=== PATIENT | female | born 1940 | race Caucasian/White ===

== ENCOUNTER → 2016-11-14 | Outpatient (CLI) | payer MEDICARE, BC ==
--- NOTE | 2016-11-15 07:00 | NM ---
EXAMINATION TYPE: NM bone scan whole body DATE OF EXAM: 11/14/2016 4:23 PM COMPARISON: NONE HISTORY: 76 year-old female left hip pain. Previous history of breast cancer. Technique: Delayed whole-body scanning was performed following the injection of mCi Tc 99m MDP. Imag es acquired 25.7 hours post injection. FINDINGS: Scattered degenerative tracer activity at both shoulders, posterior elements of the mid thoracic spin e, lower lumbar spine, throughout the hands and fingers, bilateral knees, bilateral midfoot regions, and right great toe. There is also slight asymmetric increased tracer activity at the left hip. No peter spicious accumulation of tracer to suggest metastatic disease. Some mild increased tracer activity in the right maxilla suggest periodontal disease. IMPRESSION: Scattered degenerative tracer activity as above with asymmetrically greater degenerative tracer activ ity at the left hip. No scintigraphic evidence for osseous metastatic disease.
== END | disposition home or self-care (01) ==
LOC: RADNMMAIN 10:59
PROVIDERS: ATTEND Orthopaedic Surgery
DX: R94.8 Abnormal results of function studies of other organs and systems (principal); M16.12 Unilateral primary osteoarthritis, left hip; Z85.3 Personal history of malignant neoplasm of breast
CPT/HCPCS: 78306; A9503

== ENCOUNTER → 2016-11-19 | Outpatient (CLI) | payer MEDICARE, BC | END | disposition home or self-care (01) | LOC: LABWHC1 14:54 | PROVIDERS: ATTEND Orthopaedic Surgery | DX: M25.552 Pain in left hip (principal); Z85.3 Personal history of malignant neoplasm of breast | CPT/HCPCS: 36415; 84681 ==

== ENCOUNTER → 2017-09-24 | Outpatient (CLI) | payer MEDICARE, BC ==
--- NOTE | 2017-09-24 18:09 | XR ---
EXAMINATION TYPE: XR chest 2V DATE OF EXAM: 09/24/2017 COMPARISON: Prior chest x-ray 03/23/2016 HISTORY: Breast cancer TECHNIQUE: Frontal and lateral views of the chest are obtained. FINDINGS: There is no focal air space opacity, pleural effusion, or pneumothorax seen. The cardiac silhouette size is within normal limits. Postop change noted to the left breast. There are prominent lung volumes. The osseous structures are intact. IMPRESSION: No acute cardiopulmonary process.
== END | disposition home or self-care (01) ==
LOC: RADXRMAIN 14:27
PROVIDERS: ATTEND Internal Medicine Hematology & Oncology
DX: C50.312 Malignant neoplasm of lower-inner quadrant of left female breast (principal); M15.9 Polyosteoarthritis, unspecified; K21.0 Gastro-esophageal reflux disease with esophagitis; Z17.0 Estrogen receptor positive status [ER+]
CPT/HCPCS: 71046

== ENCOUNTER → 2018-04-02 | Outpatient (CLI) | payer MEDICARE, BC ==
--- NOTE | 2018-04-02 14:53 | MM ---
Reason for exam: additional evaluation requested from prior study. Last mammogram was performed 1 year ago. History: Patient is postmenopausal and has history of breast cancer at age 60. Benign cyst aspiration of the left breast, August 02, 2004. Benign excisional biopsy, February 09, 2002. Cyst aspiration of the left breast. Lumpectomy of the left breast. Chemotherapy. Radiation therapy of the left breast. Took estrogen for 35 years. Took antineoplastic for 5 years beginning at age 60. Physical Findings: Nurse did not find any significant physical abnormalities on exam. MG 3D Diag Mammo W/Cad STEFANIE Bilateral CC and MLO view(s) were taken. Prior study comparison: March 25, 2017, bilateral MG 3d diag mammo w/cad STEFANIE. March 23, 2016, bilateral MG 3d diag mammo w/cad STEFANIE. The breast tissue is heterogeneously dense. This may lower the sensitivity of mammography. Extensive post surgical deformity redemonstrated left breast. No significant new findings when compared with previous films. These results were verbally communicated with the patient and result sheet given to the patient on 04/02/18. ASSESSMENT: Benign, BI-RAD 2 RECOMMENDATION: Follow-up diagnostic mammogram of both breasts in 1 year.
== END ==
LOC: RADMAMWWP 13:51
PROVIDERS: ATTEND Internal Medicine Hematology & Oncology
DX: Z08 Encounter for follow-up examination after completed treatment for malignant neoplasm (principal); Z85.3 Personal history of malignant neoplasm of breast
CPT/HCPCS: 77066; G0279; 77062

== ENCOUNTER → 2019-04-06 | Outpatient (CLI) | payer MEDICARE, BC ==
--- NOTE | 2019-04-07 11:23 | MM ---
Reason for exam: additional evaluation requested from prior study. Last mammogram was performed 1 year ago. History: Patient is postmenopausal and has history of breast cancer at age 60. Benign cyst aspiration of the left breast, August 02, 2004. Benign excisional biopsy, February 09, 2002. Cyst aspiration of the left breast. Lumpectomy of the left breast. Chemotherapy. Radiation therapy of the left breast. Took estrogen for 35 years. Took antineoplastic for 5 years beginning at age 60. Physical Findings: Nurse did not find any significant physical abnormalities on exam. MG 3D Diag Mammo W/Cad STEFANIE Bilateral CC and MLO view(s) were taken. Prior study comparison: April 02, 2018, bilateral MG 3d diag mammo w/cad STEFANIE. March 25, 2017, bilateral MG 3d diag mammo w/cad STEFANIE. The breast tissue is heterogeneously dense. This may lower the sensitivity of mammography. Benign appearing bilateral calcifications, mostly vascular. No suspicious abnormality. Post therapy change on the left. No significant new findings when compared with previous films. These results were verbally communicated with the patient and result sheet given to the patient on 04/06/19. ASSESSMENT: Benign, BI-RAD 2 RECOMMENDATION: Follow-up diagnostic mammogram of both breasts in 1 year.
== END | disposition home or self-care (01) ==
LOC: RADMAMWWP 10:49
PROVIDERS: ATTEND Internal Medicine Hematology & Oncology
DX: Z08 Encounter for follow-up examination after completed treatment for malignant neoplasm (principal); Z85.3 Personal history of malignant neoplasm of breast
CPT/HCPCS: 77066; G0279; 77062

== ENCOUNTER → 2020-04-08 | Outpatient (CLI) | payer MEDICARE, BC ==
--- NOTE | 2020-04-11 10:52 | MM ---
Reason for exam: additional evaluation requested from prior study. Last mammogram was performed 1 year ago. History: Patient is postmenopausal and has history of breast cancer at age 60. Benign cyst aspiration of the left breast, August 02, 2004. Benign excisional biopsy, February 09, 2002. Cyst aspiration of the left breast. Lumpectomy of the left breast. Chemotherapy. Radiation therapy of the left breast. Took estrogen for 35 years. Took antineoplastic for 5 years beginning at age 60. Physical Findings: Nurse did not find any significant physical abnormalities on exam. MG 3D Diag Mammo W/Cad STEFANIE Bilateral CC and MLO view(s) were taken. Prior study comparison: April 06, 2019, bilateral MG 3d diag mammo w/cad STEFANIE. April 02, 2018, bilateral MG 3d diag mammo w/cad STEFANIE. The breast tissue is heterogeneously dense. This may lower the sensitivity of mammography. Finding #1: Architectural distortion in the lower inner quadrant, posterior position of the left breast consistent with known lumpectomy and treatment changes. Finding #2: There are typically benign vascular calcifications in both breasts. There is no discrete abnormality. These results were verbally communicated with the patient and result sheet given to the patient on 04/08/20. ASSESSMENT: Benign, BI-RAD 2 RECOMMENDATION: Follow-up diagnostic mammogram of both breasts in 1 year.
== END | disposition home or self-care (01) ==
LOC: RADMAMWWP 13:15
PROVIDERS: ATTEND Internal Medicine Hematology & Oncology
DX: Z08 Encounter for follow-up examination after completed treatment for malignant neoplasm (principal); Z85.3 Personal history of malignant neoplasm of breast
CPT/HCPCS: 77066; G0279; 77062

== ENCOUNTER → 2020-10-26 | Outpatient (CLI) | payer MEDICARE, BC ==
--- NOTE | 2020-10-26 11:33 | XR ---
EXAMINATION TYPE: XR chest 2V DATE OF EXAM: 10/26/2020 COMPARISON: 09/24/17 HISTORY: Shortness of breath TECHNIQUE: Frontal and lateral views of the chest are obtained. FINDINGS: Scattered senescent parenchymal changes noted. Hyperinflation compatible with COPD. No evidence for infiltrate. No evidence for atelectasis. Heart size is stable. Mediastinal structures are stable and grossly unremarkable. No evidence for hilar prominence. Degenerative changes dorsal spine. IMPRESSION: 1. No evidence for acute pulmonary disease.
== END | disposition home or self-care (01) ==
LOC: RADXRMAIN 11:00
PROVIDERS: ATTEND Internal Medicine
DX: R06.02 Shortness of breath (principal)
CPT/HCPCS: 71046

== ENCOUNTER → 2020-11-07 | Outpatient (CLI) | payer MEDICARE, BC ==
[2020-11-07 14:30] LABS: African American GFR (CKD) >90 (>60 ml/min/1.73 sqM); Blood Urea Nitrogen 13 mg/dL (7-17); Non-African American GFR(CKD) 87 (>60 ml/min/1.73 sqM)
--- NOTE | 2020-11-07 15:56 | CT ---
EXAMINATION TYPE: CT abdomen pelvis w con DATE OF EXAM: 11/07/2020 COMPARISON: None HISTORY: abdominal pain, hx of breast ca CT DLP: 881.3 mGycm CONTRAST: CT scan of the abdomen and pelvis is performed with Oral Contrast and with IV Contrast, patient injec dennise with 100 mL of Isovue 300. FINDINGS: LUNG BASES-: No visible nodule. No infiltrate. LIVER/GB: Multiple hepatic masses are identified measuring up to 3.2 cm with involvement of virtually all hepatic segments. The findings are compatible with metastatic disease. The gallbladder is surgic ally absent. PANCREAS: No inflammation. No distinct mass. SPLEEN: No splenic enlargement. No lesion seen. ADRENALS: 1.2 cm right adrenal nodule. 1.3 cm left adrenal nodule. Metastatic disease not excluded. KIDNEYS/BLADDER: No hydronephrosis. No nephrolithiasis. Renal cystic changes noted. Urinary bladder grossly unremarkable. BOWEL: Normal appendix. Normal bowel caliber. No inflammation. GENITAL ORGANS: No gross abnormality. LYMPH NODES: Periportal adenopathy measuring 1.1 cm. AORTA: No significant abnormality. OSSEOUS STRUCTURES: No significant abnormality is seen. OTHER: No significant additional abnormality is seen. IMPRESSION: 1. Findings compatible with metastatic disease to the liver. 2. Adrenal nodules may reflect adrenal metastases. 3. Mild periportal adenopathy.
== END | disposition home or self-care (01) ==
LOC: RADCTMAIN 13:34
PROVIDERS: ATTEND Internal Medicine
DX: E27.9 Disorder of adrenal gland, unspecified (principal); R59.9 Enlarged lymph nodes, unspecified; Z85.3 Personal history of malignant neoplasm of breast
CPT/HCPCS: 82565; 84520; 74177; 36415; Q9967

== ENCOUNTER → 2020-12-13 | Outpatient (CLI) | payer MEDICARE, BC ==
--- NOTE | 2020-12-13 15:02 | XR ---
EXAMINATION TYPE: XR ribs RT DATE OF EXAM: 12/13/2020 COMPARISON: Chest radiograph 10/26/2020 HISTORY: Bruising after fall TECHNIQUE: 4 views right RIBS FINDINGS: Degenerative changes are noted in the right acromioclavicular and glenohumeral joints. There are minimally displaced rib fractures of the posterior lateral aspects of the right eighth and ninth ribs. IMPRESSION: Minimally displaced rib fractures of the posterolateral aspects of the right eighth and ninth ribs. Degenerative changes of the right acromioclavicular and glenohumeral joints.
== END | disposition home or self-care (01) ==
LOC: RADXRMAIN 14:06
PROVIDERS: ATTEND Internal Medicine
DX: S22.41XA Multiple fractures of ribs, right side, initial encounter for closed fracture (principal); W19.XXXA Unspecified fall, initial encounter

== ENCOUNTER → 2021-01-03 | Day surgery (SDC) | payer MEDICARE, BC ==

== ENCOUNTER → 2021-04-14 | Outpatient (CLI) | payer MEDICARE, BC ==
--- NOTE | 2021-04-14 11:46 | MM ---
Reason for exam: additional evaluation requested from prior study. Last mammogram was performed 1 year ago. History: Patient is postmenopausal and has history of breast cancer at age 60. Benign cyst aspiration of the left breast, August 02, 2004. Benign excisional biopsy, February 09, 2002. Cyst aspiration of the left breast. Lumpectomy of the left breast. Chemotherapy. Radiation therapy of the left breast. Took estrogen for 35 years. Took antineoplastic for 5 years beginning at age 60. Physical Findings: Nurse did not find any significant physical abnormalities on exam. MG 3D Diag Mammo W/Cad STEFANIE Bilateral CC and MLO view(s) were taken. Prior study comparison: April 08, 2020, bilateral MG 3d diag mammo w/cad STEFANIE. April 06, 2019, bilateral MG 3d diag mammo w/cad STEFANIE. April 02, 2018, bilateral MG 3d diag mammo w/cad STEFANIE. The breast tissue is heterogeneously dense. This may lower the sensitivity of mammography. Finding #1: There is decreased in size and architectural distortion in the lower inner quadrant of the left breast consistent with known lumpectomy changes. Finding #2: There are typically benign vascular calcifications in both breasts. There is no discrete abnormality. These results were verbally communicated with the patient and result sheet given to the patient on 04/14/21. ASSESSMENT: Benign, BI-RAD 2 RECOMMENDATION: Routine screening mammogram of both breasts in 1 year.
== END | disposition home or self-care (01) ==
LOC: RADMAMWWP 10:55
PROVIDERS: ATTEND Internal Medicine Hematology & Oncology
DX: R92.1 Mammographic calcification found on diagnostic imaging of breast (principal); Z85.3 Personal history of malignant neoplasm of breast
CPT/HCPCS: 77066; G0279; 77062

== ENCOUNTER → 2021-05-23 | Outpatient (CLI) | payer MEDICARE, BC ==
[2021-05-23 11:24] LABS: African American GFR (CKD) >90 (>60 ml/min/1.73 sqM); Blood Urea Nitrogen 12 mg/dL (7-17); Non-African American GFR(CKD) 88 (>60 ml/min/1.73 sqM)
--- NOTE | 2021-05-23 12:58 | CT ---
EXAMINATION TYPE: CT abdomen pelvis w con DATE OF EXAM: 05/23/2021 HISTORY: Abnormal imaging, prior abnormal CT CT DLP: 997mGycm Automated Exposure Control for Dose Reduction was Utilized. CONTRAST: CT scan of the abdomen and pelvis is performed with IV Contrast, patient injected with 100 mL of Isov ue 300. COMPARISON: CT abdomen and pelvis November 07, 2020 FINDINGS: LUNG BASES: Mild bibasilar linear scarring and/or atelectasis. LIVER/GB: Cholecystectomy clips are redemonstrated. Persistent mild hepatomegaly with prominent right hepatic lobe. Visualized liver remains heterogeneously hypodense. Prior study showed approximately 1 0 smaller heterogeneous hypodense masses suspicious for metastatic disease. Current study shows rough ly 5-6 larger masses that are heterogeneously hypodense with more central irregular hypodensity. No s ignificant change on delayed phase imaging. For reference there is lesion in the left hepatic lobe me asures 8.0 cm long axis axial image 19 series 3. Main portal vein remains patent. Draining hepatic ve ins into IVC redemonstrated. PANCREAS: No significant abnormality is seen. SPLEEN: No significant abnormality is seen. ADRENALS: Slight nodular thickening to both adrenal glands is stable favoring benign lipid rich lesio n. KIDNEYS: Scattered simple-appearing thin-walled cysts throughout both kidneys largest laterally right kidney series 3 image 38 not significantly changed from prior study lower pole level. BOWEL: Surgical sutures in the sigmoid colon left pelvis redemonstrated. Oral contrast reaches the he patic flexure. No suspicious small or large bowel dilatation. UTERUS/ADNEXA: Uterus surgically absent. Scattered pelvic phleboliths. LYMPH NODES: No greater than 1cm abdominal or pelvic lymph nodes are appreciated. OSSEOUS STRUCTURES: No significant abnormality is seen. OTHER: Nonspecific 1.0 cm soft tissue nodule anterior to the liver is stable axial image 25. IMPRESSION: Enlarging liver lesions in patient with known history of breast cancer strongly favor met astatic disease. Suspect some central necrosis. Consider resampling.
== END | disposition home or self-care (01) ==
LOC: RADCTMAIN 10:07
PROVIDERS: ATTEND Internal Medicine Hematology & Oncology
DX: C50.312 Malignant neoplasm of lower-inner quadrant of left female breast (principal); R93.89 Abnormal findings on diagnostic imaging of other specified body structures
CPT/HCPCS: 82565; 84520; 74177; 36415; Q9967

== ENCOUNTER → 2021-09-30 | Outpatient (CLI) | payer MEDICARE, BC ==
--- NOTE | 2021-09-30 15:56 | MR ---
EXAMINATION TYPE: MR brain wo/w con DATE OF EXAM: 09/30/2021 COMPARISON: NONE HISTORY: Headaches, syncope. TECHNIQUE: Multiplanar, multisequence images of the brain and brainstem is performed without and with IV contras t, utilizing 6.5 mL intravenous Gadavist . FINDINGS: Diffusion weighted images demonstrate no evidence of a recent infarct or other diffusion ab normality. There is mild to moderate ventricular and sulcal prominence. There are focal and confluen t areas of T2 hyperintensity seen throughout the white matter greatest at periventricular levels. Les ions are nonspecific in appearance and distribution. Midline structures demonstrate normal morphology. The craniocervical junction appears within normal limits. Post contrast images demonstrate no abnormal enhancement or enhancing masses. The dural veno us sinuses appear patent. The visualized sinuses are clear and the globes are intact. IMPRESSION: [id number] diffuse cerebral atrophy and moderate nonspecific white matter changes c ould reflect product of altered vascular mechanics related to products of migraine headaches and/or p roduct of chronic small vessel ischemic change in patient of this age. No abnormal enhancement is see n.
== END | disposition home or self-care (01) ==
LOC: RADMRIMAIN 14:17
PROVIDERS: ATTEND Internal Medicine
DX: G31.89 Other specified degenerative diseases of nervous system (principal); R90.89 Other abnormal findings on diagnostic imaging of central nervous system
CPT/HCPCS: 70553; A9585

== ENCOUNTER 2021-10-27 13:53 | Emergency (ER) | payer MEDICARE, BC ==
[2021-10-27 13:59] VITALS: RESP 18; TEMP 98.8
--- NOTE | 2021-10-27 15:36 | CT ---
EXAMINATION TYPE: CT brain cspine wo con DATE OF EXAM: 10/27/2021 COMPARISON: Head CT dated 01/10/2010 HISTORY: pain after fall today CT DLP: 1301.1 mGycm Automated exposure control for dose reduction was used. TECHNIQUE: CT scan of the head and cervical spine are performed without contrast. FINDINGS: There is no acute intracranial hemorrhage, mass effect, or midline shift identified. The ventricles and basal cisterns and sulci over convexities are moderately enlarged consistent with mode rate generalized atrophy.. The globes are intact and the visualized sinuses are clear. Cervical spine is visualized in its entirety from C1 through upper thoracic levels and demonstrates s atisfactory alignment without evidence of acute fracture or dislocation. Prevertebral soft tissue ap pears within normal limits. The C1-C2 articulation is unremarkable. There is moderate degenerative disease at C5-6 and C6-7 levels and there is moderate bony neural foraminal encroachment at C5-6 on t he right. IMPRESSION: 1. There is no acute fracture or dislocation evident in the cervical spine. 2. No acute intracranial hemorrhage, mass effect, or midline shift is seen. Moderate generalized atro phy. 3. Moderate degenerative changes in the lower cervical spine as described above.
[2021-10-27] MEDS ORDERED: TOPICAL SKIN ADHESIVE 1 EACH AMP TOPICAL ONE (16:09)
--- NOTE | 2021-10-27 16:25 | ED ---
Fall HPI - General Chief Complaint: Fall Stated Complaint: fall Time Seen by Provider: 10/27/21 14:57 Source: patient, EMS Mode of arrival: EMS - History of Present Illness Initial Comments: Patient is an 81-year-old female presenting for evaluation after mechanical fall today. Patient states that she tripped on her shoelaces today, hitting her head on the door frame. Patient noticed blood immediately following the injury. They immediately called EMS. She lives with her at home. She denies any nausea, vomiting, loss of consciousness, history of blood thinners, dizziness, neck pain or stiffness, vision or hearing changes, chest pain, shortness of breath, cough, hemoptysis, fever, chills. - Related Data Home Medications Medication Instructions Recorded Confirmed Amitriptyline HCl [Elavil] 25 mg PO HS 12/26/20 10/27/21 Metoprolol Succinate (ER) [Toprol 50 mg PO DAILY 12/26/20 10/27/21 Xl] Docusate [Colace] 100 mg PO DAILY PRN 01/03/21 10/27/21 Meclizine [Antivert] 25 mg PO DAILY 10/27/21 10/27/21 Allergies Allergy/AdvReac Type Severity Reaction Status Date / Time No Known Allergies Allergy Verified 10/27/21 16:44 Review of Systems ROS Statement: Those systems with pertinent positive or pertinent negative responses have been documented in the HPI. ROS Other: All systems not noted in ROS Statement are negative. Past Medical History Past Medical History: Eye Disorder, Hypertension Additional Past Medical History / Comment(s): left breast with lymph node involvement- 2001, double vision, cataract, bladder infection History of Any Multi-Drug Resistant Organisms: MRSA Date of last positivie culture/infection: 10/06/21 MDRO Source:: MRSA URINE Past Surgical History: Hysterectomy Additional Past Surgical History / Comment(s): left breast with 16 lymph nodes removed. biopsy rt breast, colon resection not due to surgery Past Anesthesia/Blood Transfusion Reactions: No Reported Reaction Past Psychological History: No Psychological Hx Reported Smoking Status: Never smoker Past Alcohol Use History: Rare - Past Family History Mother Family Medical History: No Reported History General Exam Limitations: no limitations General appearance: alert, in no apparent distress Head exam: Present: other (3 cm superficial laceration to the occipital region of the head, otherwise WNL) Eye exam: Present: normal appearance, PERRL, EOMI. Absent: scleral icterus Neck exam: Present: normal inspection Respiratory exam: Present: normal lung sounds bilaterally. Absent: respiratory distress, wheezes, rales, rhonchi, stridor Cardiovascular Exam: Present: regular rate, normal rhythm, normal heart sounds. Absent: systolic murmur, diastolic murmur, rubs, gallop, clicks Neurological exam: Present: alert, oriented X3, CN II-XII intact Expanded Patient oriented to: Present: person, place, time Speech: Present: fluid speech Cranial nerves: EOM's Intact: Normal, Facial Sensation: Normal Eye Response: (4) open spontaneously Motor Response: (6) obeys commands Verbal Response: (5) oriented [place] Total: 15 Psychiatric exam: Present: normal affect, normal mood Skin exam: Present: warm, dry, intact, normal color. Absent: rash Course Vital Signs 10/27/21 10/27/21 10/27/21 13:55 16:23 17:05 Temperature 98.8 F 98.8 F Pulse Rate 92 90 89 Respiratory 18 18 18 Rate Blood Pressure 114/73 126/79 119/79 O2 Sat by Pulse 98 97 98 Oximetry Medical Decision Making - Medical Decision Making Patient is an 81-year-old female presenting for evaluation post fall. Patient states that she tripped on her shoelaces today, hitting her head on the door frame. She notes some blood present at the site of injury. She arrived via EMS. On exam there are no focal neurological deficits. There is a small approxim ately 3 cm superficial laceration of the scalp near the occipital region. There is dried blood surrounding the area. CT of the brain and cervical spine without contrast shows no acute fracture or dislocation, no acute intracranial hemorrhage, mass effect, or midline shift seen. I cleaned the wound with warm water, due to its superficial nature and was repaired with skin adhesive. I educated the patient on wound care. Educated on return parameters and answered all questions. Report back to ER with any worsening symptoms. Patient conveyed verbal understanding and agreed to the plan. - Radiology Data Radiology results: report reviewed CT brain and cervical spine without contrast: There is no acute fracture or dislocation evident in the cervical spine. No acute intracranial hemorrhage, mass effect, or midline shift seen. Moderate generalized atrophy. Moderate degenerative changes in the lower cervical spine. Disposition Clinical Impression: Laceration of scalp, Fall Disposition: HOME SELF-CARE Condition: Good Instructions (If sedation given, give patient instructions): Fall Prevention for Older Adults (ED), Head Injury (DC), Skin Adhesive Care (ED) Additional Instructions: Follow-up with primary care in 1-2 days. Report back to ER with any worsening symptoms, including but not limited to dizziness, loss of consciousness, seizure, vomiting, weakness. Is patient prescribed a controlled substance at d/c from ED?: No Referrals: Oleksandr Dalal MD [Primary Care Provider] - 1-2 days Time of Disposition: 16:45
[2021-10-27 18:37] VITALS: BP 119/79; PULSE 89
== END 2021-10-27 17:05 | disposition home or self-care (01) ==
LOC: EC 13:53
DX: S01.01XA Laceration without foreign body of scalp, initial encounter (principal); I10 Essential (primary) hypertension; Z90.710 Acquired absence of both cervix and uterus; W01.10XA Fall on same level from slipping, tripping and stumbling with subsequent striking against unspecified object, initial encounter
CPT/HCPCS: 12002; 70450; 72125; 99284

== ENCOUNTER 2021-10-28 13:41 | Inpatient (IN) | payer MEDICARE, BC ==
[2021-10-28 13:49] LABS: Glucose,Whole Blood 101 mg/dL (75-99)
--- NOTE | 2021-10-28 14:04 | ED ---
General Adult HPI - General Chief complaint: Altered Mental Status Stated complaint: AMS Time Seen by Provider: 10/28/21 13:48 Source: patient, RN notes reviewed Limitations: altered mental status - History of Present Illness Initial comments: Patient is a pleasant 81-year-old female presenting to the emergency department for frequent falls. Patient does come from assisted living facility. Patient states she has had 5-7 falls over the past couple of days. Patient was in the emergency department yesterday and did have topical adhesive placed to her posterior scalp. Patient does not feel confused. There was some concern for confusion from the facility. Patient denies any other significant injury. No neck or back pain. No chest pain or dyspnea. Patient denies headache or isolated area of weakness. - Related Data Home Medications Medication Instructions Recorded Confirmed Amitriptyline HCl [Elavil] 25 mg PO HS 12/26/20 10/27/21 Metoprolol Succinate (ER) [Toprol 50 mg PO DAILY 12/26/20 10/27/21 Xl] Docusate [Colace] 100 mg PO DAILY PRN 01/03/21 10/27/21 Meclizine [Antivert] 25 mg PO DAILY 10/27/21 10/27/21 Allergies Allergy/AdvReac Type Severity Reaction Status Date / Time No Known Allergies Allergy Verified 10/28/21 13:52 Review of Systems ROS Statement: Those systems with pertinent positive or pertinent negative responses have been documented in the HPI. ROS Other: All systems not noted in ROS Statement are negative. Constitutional: Denies: fever Eyes: Denies: eye pain ENT: Denies: ear pain Respiratory: Denies: cough Cardiovascular: Denies: chest pain Endocrine: Denies: fatigue Gastrointestinal: Denies: abdominal pain Genitourinary: Denies: dysuria Musculoskeletal: Denies: back pain Skin: Denies: rash Neurological: Reports: as per HPI. Denies: headache Past Medical History Past Medical History: Eye Disorder, Hypertension Additional Past Medical History / Comment(s): left breast with lymph node involvement- 2001, double vision, cataract, bladder infection History of Any Multi-Drug Resistant Organisms: MRSA Date of last positivie culture/infection: 10/06/21 MDRO Source:: MRSA URINE Past Surgical History: Hysterectomy Additional Past Surgical History / Comment(s): left breast with 16 lymph nodes removed. biopsy rt breast, colon resection not due to surgery Past Anesthesia/Blood Transfusion Reactions: No Reported Reaction Past Psychological History: No Psychological Hx Reported Smoking Status: Never smoker Past Alcohol Use History: Rare - Past Family History Mother Family Medical History: No Reported History General Exam Limitations: altered mental status General appearance: alert, in no apparent distress Head exam: Present: other (Posterior scalp wound with tissue adhesive) Eye exam: Present: normal appearance, PERRL, EOMI ENT exam: Present: normal oropharynx Neck exam: Present: normal inspection, full ROM. Absent: tenderness Respiratory exam: Present: normal lung sounds bilaterally Cardiovascular Exam: Present: regular rate, normal rhythm GI/Abdominal exam: Present: soft. Absent: tenderness Extremities exam: Present: normal inspection, full ROM. Absent: tenderness Neurological exam: Present: alert, oriented X3, CN II-XII intact. Absent: motor sensory deficit Expanded Neurological exam: Present: protecting the airway, other (Patient oriented 3 however unable to state the presidents last name) Patient oriented to: Present: person, place, time Speech: Present: fluid speech Cranial nerves: EOM's Intact: Normal Sensory exam: Upper Extremity Light Touch: Normal, Lower Extremity Light Touch: Normal Motor strength exam: RUE: 5, LUE: 5, RLE: 5, LLE: 5 Eye Response: (4) open spontaneously Motor Response: (6) obeys commands Verbal Response: (5) oriented Psychiatric exam: Present: normal affect, normal mood Skin exam: Present: normal color Course Vital Signs 10/28/21 10/28/21 13:48 13:54 Pulse Rate 82 Respiratory 16 Rate Blood Pressure 128/112 106/76 O2 Sat by Pulse 95 Oximetry EKG Findings - EKG Comments: EKG Findings:: Sinus rhythm rate 79. SD 1:30. QRS 137. QT 445. QTC 479. Normal axis. Intraventricular conduction delay. Nonspecific ST-T. Medical Decision Making - Medical Decision Making Patient reevaluated. Patient and family updated on results and plan. Case d iscussed with Dr. Page, who will admit covering Dr. Dalal. - Lab Data Result diagrams: 10/28/21 14:24 10/28/21 14:24 Lab Results 10/28/21 10/28/21 10/28/21 Range/Units 13:48 14:24 14:24 WBC 8.3 (3.8-10.6) k/uL RBC 4.01 (3.80-5.40) m/uL Hgb 9.3 L (11.4-16.0) gm/dL Hct 31.1 L (34.0-46.0) % MCV 77.4 L (80.0-100.0) fL MCH 23.3 L (25.0-35.0) pg MCHC 30.0 L (31.0-37.0) g/dL RDW 18.5 H (11.5-15.5) % Plt Count 329 (150-450) k/uL MPV 8.9 Neutrophils % 79 % Lymphocytes % 12 % Monocytes % 6 % Eosinophils % 0 % Basophils % 0 % Neutrophils # 6.6 (1.3-7.7) k/uL Lymphocytes # 1.0 (1.0-4.8) k/uL Monocytes # 0.5 (0-1.0) k/uL Eosinophils # 0.0 (0-0.7) k/uL Basophils # 0.0 (0-0.2) k/uL Hypochromasia Marked Anisocytosis Slight Microcytosis Slight PT 11.2 (9.0-12.0) sec INR 1.0 (<1.2) APTT 22.6 (22.0-30.0) sec Sodium (137-145) mmol/L Potassium (3.5-5.1) mmol/L Chloride (98-107) mmol/L Carbon Dioxide (22-30) mmol/L Anion Gap mmol/L BUN (7-17) mg/dL Creatinine (0.52-1.04) mg/dL Est GFR (CKD-EPI)AfAm (>60 ml/min/1.73 sqM) Est GFR (CKD-EPI)NonAf (>60 ml/min/1.73 sqM) Glucose (74-99) mg/dL POC Glucose (mg/dL) 101 H (75-99) mg/dL POC Glu Surgery Specialist Myla Moyer Plasma Lactic Acid [place] (0.7-2.0) mmol/L Calcium (8.4-10.2) mg/dL Phosphorus (2.5-4.5) mg/dL Magnesium (1.6-2.3) mg/dL Total Bilirubin (0.2-1.3) mg/dL AST (14-36) U/L ALT (4-34) U/L Alkaline Phosphatase (38-126) U/L Creatine Kinase (30-135) U/L Troponin I (0.000-0.034) ng/mL Total Protein (6.3-8.2) g/dL Albumin (3.5-5.0) g/dL TSH (0.465-4.680) mIU/L Urine Color Urine Appearance (Clear) Urine pH (5.0-8.0) Ur Specific [place] (1.001-1.035) Urine Protein (Negative) Urine Glucose (UA) (Negative) Urine Ketones (Negative) Urine Blood (Negative) Urine Nitrite (Negative) Urine Bilirubin (Negative) Urine Urobilinogen (<2.0) mg/dL Ur Leukocyte Esterase (Negative) Urine RBC (0-5) /hpf Urine WBC (0-5) /hpf Urine WBC Clumps (None) /hpf Ur Squamous Epith Cells (0-4) /hpf Urine Bacteria (None) /hpf Hyaline Casts (0-2) /lpf Urine Mucus (None) /hpf 10/28/21 10/28/21 10/28/21 Range/Units 14:24 14:24 14:24 WBC (3.8-10.6) k/uL RBC (3.80-5.40) m/uL Hgb (11.4-16.0) gm/dL Hct (34.0-46.0) % MCV (80.0-100.0) fL MCH (25.0-35.0) pg MCHC (31.0-37.0) g/dL RDW (11.5-15.5) % Plt Count (150-450) k/uL MPV Neutrophils % % Lymphocytes % % Monocytes % % Eosinophils % % Basophils % % Neutrophils # (1.3-7.7) k/uL Lymphocytes # (1.0-4.8) k/uL Monocytes # (0-1.0) k/uL Eosinophils # (0-0.7) k/uL Basophils # (0-0.2) k/uL Hypochromasia Anisocytosis Microcytosis PT (9.0-12.0) sec INR (<1.2) APTT (22.0-30.0) sec Sodium 136 L (137-145) mmol/L Potassium 4.5 (3.5-5.1) mmol/L Chloride 106 (98-107) mmol/L Carbon Dioxide 23 (22-30) mmol/L Anion Gap 7 mmol/L BUN 18 H (7-17) mg/dL Creatinine 0.53 (0.52-1.04) mg/dL Est GFR (CKD-EPI)AfAm >90 (>60 ml/min/1.73 sqM) Est GFR (CKD-EPI)NonAf 89 (>60 ml/min/1.73 sqM) Glucose 96 (74-99) mg/dL POC Glucose (mg/dL) (75-99) mg/dL POC Glu Surgery Specialist ID Plasma Lactic Acid [place] 2.6 H* (0.7-2.0) mmol/L Calcium 9.0 (8.4-10.2) mg/dL Phosphorus 3.0 (2.5-4.5) mg/dL Magnesium 2.0 (1.6-2.3) mg/dL Total Bilirubin 1.3 (0.2-1.3) mg/dL AST 105 H (14-36) U/L ALT 36 H (4-34) U/L Alkaline Phosphatase 451 H (38-126) U/L Creatine Kinase 575 H (30-135) U/L Troponin I (0.000-0.034) ng/mL Total Protein 7.1 (6.3-8.2) g/dL Albumin 3.3 L (3.5-5.0) g/dL TSH 6.940 H (0.465-4.680) mIU/L Urine Color Yellow Urine Appearance Cloudy H (Clear) Urine pH 6.0 (5.0-8.0) Ur Specific [place] 1.024 (1.001-1.035) Urine Protein 2+ H (Negative) Urine Glucose (UA) Negative (Negative) Urine Ketones Trace H (Negative) Urine Blood Moderate H (Negative) Urine Nitrite Positive H (Negative) Urine Bilirubin Negative (Negative) Urine Urobilinogen 2.0 (<2.0) mg/dL Ur Leukocyte Esterase Large H (Negative) Urine RBC 167 H (0-5) /hpf Urine WBC >182 H (0-5) /hpf Urine WBC Clumps Many H (None) /hpf Ur Squamous Epith Cells <1 (0-4) /hpf Urine Bacteria Few H (None) /hpf Hyaline Casts 10 H (0-2) /lpf Urine Mucus Many H (None) /hpf 10/28/21 Range/Units 14:24 WBC (3.8-10.6) k/uL RBC (3.80-5.40) m/uL Hgb (11.4-16.0) gm/dL Hct (34.0-46.0) % MCV (80.0-100.0) fL MCH (25.0-35.0) pg MCHC (31.0-37.0) g/dL RDW (11.5-15.5) % Plt Count (150-450) k/uL MPV Neutrophils % % Lymphocytes % % Monocytes % % Eosinophils % % Basophils % % Neutrophils # (1.3-7.7) k/uL Lymphocytes # (1.0-4.8) k/uL Monocytes # (0-1.0) k/uL Eosinophils # (0-0.7) k/uL Basophils # (0-0.2) k/uL Hypochromasia Anisocytosis Microcytosis PT (9.0-12.0) sec INR (<1.2) APTT (22.0-30.0) sec Sodium (137-145) mmol/L Potassium (3.5-5.1) mmol/L Chloride (98-107) mmol/L Carbon Dioxide (22-30) mmol/L Anion Gap mmol/L BUN (7-17) mg/dL Creatinine (0.52-1.04) mg/dL Est GFR (CKD-EPI)AfAm (>60 ml/min/1.73 sqM) Est GFR (CKD-EPI)NonAf (>60 ml/min/1.73 sqM) Glucose (74-99) mg/dL POC Glucose (mg/dL) (75-99) mg/dL POC Glu Surgery Specialist ID Plasma Lactic Acid [place] (0.7-2.0) mmol/L Calcium (8.4-10.2) mg/dL Phosphorus (2.5-4.5) mg/dL Magnesium (1.6-2.3) mg/dL Total Bilirubin (0.2-1.3) mg/dL AST (14-36) U/L ALT (4-34) U/L Alkaline Phosphatase (38-126) U/L Creatine Kinase (30-135) U/L Troponin I <0.012 (0.000-0.034) ng/mL Total Protein (6.3-8.2) g/dL Albumin (3.5-5.0) g/dL TSH (0.465-4.680) mIU/L Urine Color Urine Appearance (Clear) Urine pH (5.0-8.0) Ur Specific [place] (1.001-1.035) Urine Protein (Negative) Urine Glucose (UA) (Negative) Urine Ketones (Negative) Urine Blood (Negative) Urine Nitrite (Negative) Urine Bilirubin (Negative) Urine Urobilinogen (<2.0) mg/dL Ur Leukocyte Esterase (Negative) Urine RBC (0-5) /hpf Urine WBC (0-5) /hpf Urine WBC Clumps (None) /hpf Ur Squamous Epith Cells (0-4) /hpf Urine Bacteria (None) /hpf Hyaline Casts (0-2) /lpf Urine Mucus (None) /hpf Disposition Clinical Impression: Fall, UTI (urinary tract infection) Disposition: ADMITTED IP TO THIS HOSP Is patient prescribed a controlled substance at d/c from ED?: No Referrals: Oleksandr Dalal MD [Primary Care Provider] - 1-2 days Time of Disposition: 15:48
--- NOTE | 2021-10-28 14:33 | XR ---
EXAMINATION TYPE: XR chest 2V DATE OF EXAM: 10/28/2021 COMPARISON: 10/26/21 HISTORY: sob TECHNIQUE: Frontal and lateral views of the chest are obtained. FINDINGS: There is no focal air space opacity, pleural effusion, or pneumothorax seen. The cardiac silhouette size is within normal limits. The osseous structures are intact. IMPRESSION: No acute cardiopulmonary process.
[2021-10-28 14:39] LABS: Anisocytosis Slight; Basophils % (A) 0 %; Eosinophils % (A) 0 %; HCT 31.1 % (34.0-46.0); HGB 9.3 gm/dL (11.4-16.0); Hypochromasia Marked; Lymphocytes % (A) 12 %; MCH 23.3 pg (25.0-35.0); MCV 77.4 fL (80.0-100.0); Mean Platelet Volume 8.9; Microcytosis Slight; Monocytes # (A) 0.5 k/uL (0-1.0); Monocytes % (A) 6 %; Neutrophils # (A) 6.6 k/uL (1.3-7.7); Neutrophils % (A) 79 %; Platelet Count 329 k/uL (150-450); RBC 4.01 m/uL (3.80-5.40); RDW 18.5 % (11.5-15.5); WBC 8.3 k/uL (3.8-10.6)
[2021-10-28 14:51] LABS: Partial Thromboplastin Time 22.6 sec (22.0-30.0); Prothrombin Time 11.2 sec (9.0-12.0)
--- NOTE | 2021-10-28 14:53 | CT ---
EXAMINATION TYPE: CT brain wo con DATE OF EXAM: 10/28/2021 HISTORY: Weakness. CT DLP: 1059.4 mGycm. Automated Exposure Control for Dose Reduction was Utilized. TECHNIQUE: CT scan of the head is performed without contrast. COMPARISON: None. FINDINGS: There is no acute intracranial hemorrhage or midline shift identified. There is diffuse v entricular and sulcal prominence consistent with diffuse age-related cerebral atrophy. . The globes are intact and the visualized sinuses are clear. IMPRESSION: No acute intracranial hemorrhage or midline shift. There is diffuse age-related cerebra l atrophy
[2021-10-28 15:09] LABS: ALT 36 U/L (4-34); AST 105 U/L (14-36); African American GFR (CKD) >90 (>60 ml/min/1.73 sqM); Albumin 3.3 g/dL (3.5-5.0); Alkaline Phosphatase 451 U/L (38-126); Anion Gap 7 mmol/L; Blood Urea Nitrogen 18 mg/dL (7-17); Carbon Dioxide 23 mmol/L (22-30); Chloride 106 mmol/L (98-107); Creatine Kinase 575 U/L (30-135); Glucose 96 mg/dL (74-99); Non-African American GFR(CKD) 89 (>60 ml/min/1.73 sqM); Potassium 4.5 mmol/L (3.5-5.1); Sodium 136 mmol/L (137-145); Total Bilirubin 1.3 mg/dL (0.2-1.3); Total Protein 7.1 g/dL (6.3-8.2)
[2021-10-28 15:39] LABS: Appearance,Urine Cloudy (Clear); Bacteria,Urine Few /hpf; Bilirubin,Urine Negative (Negative); Blood,Urine Moderate (Negative); Color,Urine Yellow; Glucose,Urine (UA) Negative (Negative); Hyaline Casts,Urine 10 /lpf (0-2); Ketones,Urine Trace (Negative); Leukocyte Esterase,Urine Large (Negative); Mucus,Urine Many /hpf; Nitrite,Urine Positive (Negative); Protein,Urine 2+ (Negative); RBC,Urine 167 /hpf (0-5); Specific Gravity,Urine 1.024 (1.001-1.035); Squamous Epithelial Cell,Urine <1 /hpf (0-4); WBC,Urine >182 /hpf (0-5)
[2021-10-28] MEDS ORDERED: NALOXONE 0.4 MG/ML 1 ML VIAL IV PRN (15:49)
[2021-10-28] MEDS: SODIUM CHLORIDE 0.9% 1,000 ML IV SCH (16:24)
[2021-10-28] MEDS: ACETAMINOPHEN TAB 325 MG TAB PO PRN (16:26)
[2021-10-28 18:16] LABS: T4, Free (Free Thyroxine) 1.36 ng/dL (0.78-2.19)
[2021-10-28] MEDS: AMITRIPTYLINE HCL 25 MG TAB PO SCH (19:48)
[2021-10-28] MEDS ORDERED: DOCUSATE 100 MG CAP PO PRN (21:00)
[2021-10-29 04:19] LABS: Anisocytosis Slight; Basophils # (A) 0.1 k/uL (0-0.2); Basophils % (A) 1 %; Eosinophils # (A) 0.1 k/uL (0-0.7); Eosinophils % (A) 1 %; HCT 28.8 % (34.0-46.0); HGB 8.5 gm/dL (11.4-16.0); Hypochromasia Marked; Lymphocytes # (A) 0.9 k/uL (1.0-4.8); Lymphocytes % (A) 12 %; MCH 23.2 pg (25.0-35.0); MCHC 29.6 g/dL (31.0-37.0); MCV 78.3 fL (80.0-100.0); Mean Platelet Volume 8.8; Microcytosis Slight; Monocytes # (A) 0.6 k/uL (0-1.0); Monocytes % (A) 8 %; Neutrophils # (A) 5.7 k/uL (1.3-7.7); Neutrophils % (A) 78 %; Platelet Count 267 k/uL (150-450); RBC 3.68 m/uL (3.80-5.40); RDW 18.6 % (11.5-15.5); WBC 7.4 k/uL (3.8-10.6)
[2021-10-29 04:34] LABS: Potassium 4.5 mmol/L (3.5-5.1)
[2021-10-29 04:35] LABS: ALT 31 U/L (4-34); AST 84 U/L (14-36); African American GFR (CKD) >90 (>60 ml/min/1.73 sqM); Albumin 2.8 g/dL (3.5-5.0); Albumin/Globulin Ratio 0.8; Alkaline Phosphatase 399 U/L (38-126); Anion Gap 4 mmol/L; Blood Urea Nitrogen 19 mg/dL (7-17); Calcium 8.7 mg/dL (8.4-10.2); Carbon Dioxide 25 mmol/L (22-30); Chloride 107 mmol/L (98-107); Globulin 3.4 g/dL; Glucose 85 mg/dL (74-99); Non-African American GFR(CKD) 89 (>60 ml/min/1.73 sqM); Sodium 136 mmol/L (137-145); Total Bilirubin 0.9 mg/dL (0.2-1.3); Total Protein 6.2 g/dL (6.3-8.2)
[2021-10-29] MEDS: ACETAMINOPHEN TAB 325 MG TAB PO PRN ×2 (06:36→16:43)
[2021-10-29] MEDS: SODIUM CHLORIDE 0.9% 1,000 ML IV SCH ×2 (08:13→21:22)
[2021-10-29] MEDS: METOPROLOL SUCCINATE (ER) 50 MG TAB.ER.24H PO SCH (08:13)
[2021-10-29] MEDS: MECLIZINE 25 MG TAB PO SCH (08:13)
--- NOTE | 2021-10-29 10:13 | P.HPIM ---
History of Present Illness H&P Date: 10/29/21 Chief Complaint: UTI and falls This is an 81-year-old female patient of Dr. Dalal presented to the ER with concerns of frequent falls patient is currently residing at assisted living facility and also concerns of confusion. Patient does appear to be a poor historian at this time. Patient does have a past medical history of essential hypertension, eye disorder, left breast cancer, memory impairment, and UTIs, anxiety and depression. Chest x-ray was performed showing no acute cardiopulmonary process. Head CT was performed showing no acute intracranial hemorrhage or midline shift there is diffuse age-related cerebral atrophy. UA positive for urinary tract infection. Initial lactic acid 2. 6 repeat lactic acid 2.0. Urine culture ordered. Patient started on Rocephin. At this time patient is resting comfortably in bed intermittent episodes of confusion. No o ther neurological symptoms at this time. Repeat labs have been ordered. PT OT and social work services consulted Review of Systems Please refer to HPI otherwise unremarkable Past Medical History Past Medical History: Eye Disorder, Hypertension Additional Past Medical History / Comment(s): left breast CA with lymph node involvement- 2001, double vision, cataract, bladder infection, memory impairment History of Any Multi-Drug Resistant Organisms: MRSA Date of last positivie culture/infection: 10/06/21 MDRO Source:: MRSA URINE Past Surgical History: Hysterectomy Additional Past Surgical History / Comment(s): left breast lumpectomy with 16 lymph nodes removed. biopsy rt breast, colon resection not due to surgery Past Anesthesia/Blood Transfusion Reactions: No Reported Reaction Past Psychological History: Anxiety, Depression Smoking Status: Former smoker Past Alcohol Use History: Rare - Past Family History Mother Family Medical History: No Reported History Medications and Allergies Home Medications Medication Instructions Recorded Confirmed Type Amitriptyline HCl [Elavil] 25 mg PO HS 12/26/20 10/28/21 History Metoprolol Succinate (ER) [Toprol 50 mg PO DAILY 12/26/20 10/28/21 History Xl] Docusate [Colace] 100 mg PO DAILY PRN 01/03/21 10/28/21 History Meclizine [Antivert] 25 mg PO DAILY 10/27/21 10/28/21 History Allergies Allergy/AdvReac Type Severity Reaction Status Date / Time No Known Allergies Allergy Verified 10/28/21 16:28 Physical Exam Vitals: Vital Signs Temp Pulse Pulse Resp BP BP Pulse Ox 10/29/21 08:00 98.7 F 99 16 129/72 95 10/29/21 01:30 97.9 F 94 18 144/74 95 10/28/21 19:20 98.0 F 84 16 123/74 96 10/28/21 19:02 16 10/28/21 16:40 84 18 116/70 95 10/28/21 13:54 106/76 10/28/21 13:48 98.0 F 82 16 128/112 95 Intake and Output 10/28/21 10/29/21 10/29/21 22:59 06:59 14:59 Other: Voiding Method Diaper Incontinent External Catheter # Voids 1 Weight 63.503 kg Head normocephalic Neck supple Lungs clear to auscultation bilaterally no wheezing or crackles Heart regular rate and rhythm S1-S2, no rub or gallop Abdomen is soft nontender nondistended positive bowel sounds no hepatosplenomegaly Extremities no edema Neuro alert and orientated to 3. Intermittent episodes of confusion Results CBC & Chem 7: 10/29/21 03:25 10/29/21 03:25 Labs: Abnormal Lab Results - Last 24 Hours (Table) 10/28/21 10/28/21 10/28/21 Range/Units 13:48 14:24 14:24 RBC (3.80-5.40) m/uL Hgb 9.3 L (11.4-16.0) gm/dL Hct 31.1 L (34.0-46.0) % MCV 77.4 L (80.0-100.0) fL MCH 23.3 L (25.0-35.0) pg MCHC 30.0 L (31.0-37.0) g/dL RDW 18.5 H (11.5-15.5) % Lymphocytes # (1.0-4.8) k/uL Sodium (137-145) mmol/L BUN (7-17) mg/dL POC Glucose (mg/dL) 101 H (75-99) mg/dL Plasma Lactic Acid [place] (0.7-2.0) mmol/L AST (14-36) U/L ALT (4-34) U/L Alkaline Phosphatase (38-126) U/L Creatine Kinase (30-135) U/L Total Protein (6.3-8.2) g/dL Albumin (3.5-5.0) g/dL TSH (0.465-4.680) mIU/L Urine Appearance Cloudy H (Clear) Urine Protein 2+ H (Negative) Urine Ketones Trace H (Negative) Urine Blood Moderate H (Negative) Urine Nitrite Positive H (Negative) Ur Leukocyte Esterase Large H (Negative) Urine RBC 167 H (0-5) /hpf Urine WBC >182 H (0-5) /hpf Urine WBC Clumps Many H (None) /hpf Urine Bacteria Few H (None) /hpf Hyaline Casts 10 H (0-2) /lpf Urine Mucus Many H (None) /hpf 10/28/21 10/28/21 10/29/21 Range/Units 14:24 14:24 03:25 RBC 3.68 L (3.80-5.40) m/uL Hgb 8.5 L (11.4-16.0) gm/dL Hct 28.8 L (34.0-46.0) % MCV 78.3 L (80.0-100.0) fL MCH 23.2 L (25.0-35.0) pg MCHC 29.6 L (31.0-37.0) g/dL RDW 18.6 H (11.5-15.5) % Lymphocytes # 0.9 L (1.0-4.8) k/uL Sodium 136 L (137-145) mmol/L BUN 18 H (7-17) mg/dL POC Glucose (mg/dL) (75-99) mg/dL Plasma Lactic Acid [place] 2.6 H* (0.7-2.0) mmol/L AST 105 H (14-36) U/L ALT 36 H (4-34) U/L Alkaline Phosphatase 451 H (38-126) U/L Creatine Kinase 575 H (30-135) U/L Total Protein (6.3-8.2) g/dL Albumin 3.3 L (3.5-5.0) g/dL TSH 6.940 H (0.465-4.680) mIU/L Urine Appearance (Clear) Urine Protein (Negative) Urine Ketones (Negative) Urine Blood (Negative) Urine Nitrite (Negative) Ur Leukocyte Esterase (Negative) Urine RBC (0-5) /hpf Urine WBC (0-5) /hpf Urine WBC Clumps (None) /hpf Urine Bacteria (None) /hpf Hyaline Casts (0-2) /lpf Urine Mucus (None) /hpf 10/29/21 Range/Units 03:25 RBC (3.80-5.40) m/uL Hgb (11.4-16.0) gm/dL Hct (34.0-46.0) % MCV (80.0-100.0) fL MCH (25.0-35.0) pg MCHC (31.0-37.0) g/dL RDW (11.5-15.5) % Lymphocytes # (1.0-4.8) k/uL Sodium 136 L (137-145) mmol/L BUN 19 H (7-17) mg/dL POC Glucose (mg/dL) (75-99) mg/dL Plasma Lactic Acid [place] (0.7-2.0) mmol/L AST 84 H (14-36) U/L ALT (4-34) U/L Alkaline Phosphatase 399 H (38-126) U/L Creatine Kinase (30-135) U/L Total Protein 6.2 L (6.3-8.2) g/dL Albumin 2.8 L (3.5-5.0) g/dL TSH (0.465-4.680) mIU/L Urine Appearance (Clear) Urine Protein (Negative) Urine Ketones (Negative) Urine Blood (Negative) Urine Nitrite (Negative) Ur Leukocyte Esterase (Negative) Urine RBC (0-5) /hpf Urine WBC (0-5) /hpf Urine WBC Clumps (None) /hpf Urine Bacteria (None) /hpf Hyaline Casts (0-2) /lpf Urine Mucus (None) /hpf Microbiology - Last 24 Hours (Table) 10/28/21 14:24 Urine Culture - Preliminary Urine,Catheterized Thrombosis Risk Factor Assmnt - Choose All That Apply Each Risk Factor Represents 3 Points: Age 75 years or older Thrombosis Risk Factor Assessment Total Risk Factor Score: 3 Thrombosis Risk Factor Assessment Level: Moderate Risk Assessment and Plan Assessment: 1. Frequent falls. Head CT was negative 2. Urinary tract infection. Urine culture ordered patient started on Rocephin 3. Confusion secondary to urinary tract infection 4. Anemia. Hemoglobin 8.5 will order stool for occult blood 5. History of essential hypertension 6. History of memory impairment 7. History of breast cancer 8. Anxiety and depression 9. Elevated liver enzymes. These do appear to be trending down repeat labs ordered for a.m. DVT prophylaxis Lovenox. GI prophylaxis Protonix Continue IV Rocephin Urine culture ordered Stool for occult blood ordered Continue normal saline at 75 'Repeat labs ordered Time with Patient: Greater than 30 (Greater than 60% of the total time spent in counseling and coordination of care)
--- NOTE | 2021-10-29 12:19 | US ---
EXAMINATION TYPE: US liver DATE OF EXAM: 10/29/2021 COMPARISON: Multiple CT's, most recent dated 05/23/2021 CLINICAL HISTORY: elevated liver numbers. EXAM MEASUREMENTS: Liver Length: 22.6 cm Gallbladder Wall: Surgically absent CBD: 0.4 cm Right Kidney: 13.7 x 4.7 x 5.1 cm Pancreas: Obscured by bowel gas Liver: multiple masses throughout both lobes, largest measures 10.2 x 9.0 x 10.7 cm. Gallbladder: Surgically absent CBD: wnl Right Kidney: lower pole cyst measures 3.4 x 3.2 x 3.7 cm. IMPRESSION: 1. Multiple suspicious lobular hypoechoic areas within the liver. The largest measures 10 cm which is slightly more prominent than CT of 05/23/2021.
[2021-10-29 16:30] LABS: % Iron Saturation 5.19 (12.00-45.00)
[2021-10-29] MEDS: AMITRIPTYLINE HCL 25 MG TAB PO SCH (20:22)
[2021-10-30] MEDS: LEVOTHYROXINE 25 MCG TAB PO SCH (04:32)
[2021-10-30] MEDS: ACETAMINOPHEN TAB 325 MG TAB PO PRN ×2 (04:32→15:08)
[2021-10-30] MEDS: MECLIZINE 25 MG TAB PO SCH (07:19)
[2021-10-30] MEDS: ENOXAPARIN 40 MG/0.4 ML SYRINGE SQ SCH (07:19)
[2021-10-30] MEDS: METOPROLOL SUCCINATE (ER) 50 MG TAB.ER.24H PO SCH (07:19)
[2021-10-30] MEDS: PANTOPRAZOLE 40 MG TABLET PO SCH (07:19)
[2021-10-30] MEDS: SODIUM CHLORIDE 0.9% 1,000 ML IV SCH ×2 (08:49→23:34)
[2021-10-30 10:46] LABS: Basophils # (A) 0.03 X 10*3/uL (0.00-0.10); Basophils % (A) 0.5 %; Eosinophils # (A) 0.02 X 10*3/uL (0.04-0.35); Eosinophils % (A) 0.3 %; HCT 27.6 % (37.2-46.3); HGB 7.9 g/dL (12.0-15.0); Lymphocytes # (A) 0.81 X 10*3/uL (0.90-5.00); Lymphocytes % (A) 13.4 %; MCH 22.4 pg (27.0-32.0); MCHC 28.6 g/dL (32.0-37.0); MCV 78.4 fL (80.0-97.0); Mean Platelet Volume 11.6 fL (9.5-12.2); Monocytes # (A) 0.63 X 10*3/uL (0.20-1.00); Monocytes % (A) 10.4 %; NRBC Per 100 WBC 0 /100 WBCS (0.0-0.0); Neutrophils % (A) 74.4 %; Platelet Count 264 X 10*3/uL (140-440); RBC 3.52 X 10*6/uL (4.10-5.20); RDW 20.6 % (11.5-14.5); WBC 6.05 X 10*3/uL (4.50-10.00)
[2021-10-30 11:15] LABS: African American GFR (CKD) 112.4 (60.0-200.0); Albumin 2.8 g/dL (3.8-4.9); Albumin/Globulin Ratio 0.97 (1.60-3.17); Anion Gap 11.4 mmol/L (10.00-18.00); BUN/Creat Ratio 20.25 Ratio (12.00-20.00); Blood Urea Nitrogen 8.1 mg/dL (9.0-27.0); Calcium 8.4 mg/dL (8.7-10.3); Carbon Dioxide 17.6 mmol/L (20.0-27.5); Globulin 2.9 g/dL (1.6-3.3); Potassium 4.2 mmol/L (3.5-5.5); Total Bilirubin 0.5 mg/dL (0.30-1.20); Total Protein 5.7 g/dL (6.2-8.2)
[2021-10-30] MEDS ORDERED: SODIUM FERRIC GLUCONAT-SUCROSE 125 MG in SODIUM CHLORIDE 0.9% 100 ML IVPB ONE (14:00)
[2021-10-30] MEDS: AMITRIPTYLINE HCL 25 MG TAB PO SCH (19:41)
--- NOTE | 2021-10-30 21:51 | US ---
EXAMINATION TYPE: US kidneys/renal and bladder DATE OF EXAM: 10/30/2021 COMPARISON: US liver 10/29/21 CLINICAL HISTORY: UTI. EXAM MEASUREMENTS: Right Kidney: 13.4 x 6.7 x 5.5 cm Left Kidney: 11.6 x 5.6 x 4.6 cm Incidental: masses seen throughout liver - also noted in US liver from 10/29/21 Right Kidney: Lower pole cystic area 3.6 x 3.4 x 3.1 cm Left Kidney: No hydronephrosis or masses seen Bladder: Anechoic; not distended and suboptimally evaluated. Bilateral Jets seen: No There is no evidence for hydronephrosis at this point in time. No nephrolithiasis is seen. No renal masses are identified. The urinary bladder is anechoic. IMPRESSION: 1. No evidence of hydronephrosis. 2. Multiple liver masses seen dating back to multiple prior CT abdomen pelvis is to at least 11/08/19 21. 3. Right renal cyst.
[2021-10-31] MEDS: ACETAMINOPHEN TAB 325 MG TAB PO PRN (04:13)
[2021-10-31] MEDS: LEVOTHYROXINE 25 MCG TAB PO SCH (04:17)
[2021-10-31] MEDS: PANTOPRAZOLE 40 MG TABLET PO SCH (07:03)
[2021-10-31] MEDS: METOPROLOL SUCCINATE (ER) 50 MG TAB.ER.24H PO SCH (07:03)
[2021-10-31] MEDS: SODIUM CHLORIDE 0.9% 1,000 ML IV SCH (07:03)
[2021-10-31] MEDS: MECLIZINE 25 MG TAB PO SCH (07:04)
[2021-10-31] MEDS: ENOXAPARIN 40 MG/0.4 ML SYRINGE SQ SCH (07:04)
--- NOTE | 2021-10-31 08:38 | P.GSCN ---
History of Present Illness Consult date: 10/31/21 Reason for Consult: Recurrent UTI Requesting physician: Kleber Page History of present illness: The patient is an 81-year-old white female with a history of recurrent UTIs. She also has a history of mixed urinary incontinence. She has been managed with a self treatment regimen using ciprofloxacin. In August, she was treated for a MRSA UTI with a 7 day course of Bactrim DS. She is currently admitted with UTI symptoms, and urine culture again shows MRSA. She reports dysuria but denies hematuria. Review of Systems - Constitutional Reports weakness - Genitourinary Genitourinary: Reports dysuria, Denies flank pain, Denies hematuria - Neurological Reports confusion Past Medical History Past Medical History: Eye Disorder, Hypertension Additional Past Medical History / Comment(s): left breast CA with lymph node involvement- 2001, double vision, cataract, bladder infection, memory impairment History of Any Multi-Drug Resistant Organisms: MRSA Year Discovered:: 10/06/21 MDRO Source:: MRSA URINE Past Surgical History: Hysterectomy Additional Past Surgical History / Comment(s): left breast lumpectomy with 16 lymph nodes removed. biopsy rt breast, colon resection not due to surgery Past Anesthesia/Blood Transfusion Reactions: No Reported Reaction Past Psychological History: Anxiety, Depression Smoking Status: Former smoker Past Alcohol Use History: Rare - Past Family History Mother Family Medical History: No Reported History Medications and Allergies Home Medications Medication Instructions Recorded Confirmed Type Amitriptyline HCl [Elavil] 25 mg PO HS 12/26/20 10/28/21 History Metoprolol Succinate (ER) [Toprol 50 mg PO DAILY 12/26/20 10/28/21 History Xl] Docusate [Colace] 100 mg PO DAILY PRN 01/03/21 10/28/21 History Meclizine [Antivert] 25 mg PO DAILY 10/27/21 10/28/21 History Allergies Allergy/AdvReac Type Severity Reaction Status Date / Time No Known Allergies Allergy Verified 10/28/21 16:28 Surgical - Exam Vital Signs Temp Pulse Resp BP Pulse Ox 98.0 F 82 16 128/112 95 10/28/21 13:48 10/28/21 13:48 10/28/21 13:48 10/28/21 13:48 10/28/21 13:48 - General well developed, well nourished, no distress - Respiratory normal respiratory effort - Abdomen Abdomen: soft, non tender, no guarding, no rigid, no rebound - Psychiatric oriented to time, oriented to person, oriented to place, speech is normal, memory intact Results - Labs 10/30/21 06:45 10/30/21 06:45 Abnormal Lab Results - Last 24 Hours (Table) 10/30/21 10/30/21 Range/Units 06:45 06:45 RBC 3.52 L (4.10-5.20) X 10*6/uL Hgb 7.9 L (12.0-15.0) g/dL Hct 27.6 L (37.2-46.3) % MCV 78.4 L (80.0-97.0) fL MCH 22.4 L (27.0-32.0) pg MCHC 28.6 L (32.0-37.0) g/dL RDW 20.6 H (11.5-14.5) % Immature Gran # 0.06 H (0.00-0.04) X 10*3/uL Lymphocytes # 0.81 L (0.90-5.00) X 10*3/uL Eosinophils # 0.02 L (0.04-0.35) X 10*3/uL Carbon Dioxide 17.6 L (20.0-27.5) mmol/L BUN 8.1 L (9.0-27.0) mg/dL Creatinine 0.4 L (0.6-1.5) mg/dL BUN/Creatinine Ratio 20.25 H (12.00-20.00) Ratio Calcium 8.4 L (8.7-10.3) mg/dL AST 77 H (13-35) U/L Alkaline Phosphatase 384 H (41-126) U/L Total Protein 5.7 L (6.2-8.2) g/dL Albumin 2.8 L (3.8-4.9) g/dL Albumin/Globulin Ratio 0.97 L (1.60-3.17) g/dL Microbiology - Last 24 Hours (Table) 10/28/21 14:24 Urine Culture - Final Urine,Catheterized Methicillin resist S. aureus Diabetes panel 10/30/21 Range/Units 06:45 Sodium 135 (135-145) mmol/L Potassium 4.2 (3.5-5.5) mmol/L Chloride 106 (96-109) mmol/L Carbon Dioxide 17.6 L (20.0-27.5) mmol/L BUN 8.1 L (9.0-27.0) mg/dL Creatinine 0.4 L (0.6-1.5) mg/dL Glucose 78 (70-110) mg/dL Calcium 8.4 L (8.7-10.3) mg/dL AST 77 H (13-35) U/L ALT 32 (8-44) U/L Alkaline Phosphatase 384 H (41-126) U/L Total Protein 5.7 L (6.2-8.2) g/dL Albumin 2.8 L (3.8-4.9) g/dL Calcium panel 10/30/21 Range/Units 06:45 Calcium 8.4 L (8.7-10.3) mg/dL Albumin 2.8 L (3.8-4.9) g/dL Pituitary panel 10/30/21 Range/Units 06:45 Sodium 135 (135-145) mmol/L Potassium 4.2 (3.5-5.5) mmol/L Chloride 106 (96-109) mmol/L Carbon Dioxide 17.6 L (20.0-27.5) mmol/L BUN 8.1 L (9.0-27.0) mg/dL Creatinine 0.4 L (0.6-1.5) mg/dL Glucose 78 (70-110) mg/dL Calcium 8.4 L (8.7-10.3) mg/dL Adrenal panel 10/30/21 Range/Units 06:45 Sodium 135 (135-145) mmol/L Potassium 4.2 (3.5-5.5) mmol/L Chloride 106 (96-109) mmol/L Carbon Dioxide 17.6 L (20.0-27.5) mmol/L BUN 8.1 L (9.0-27.0) mg/dL Creatinine 0.4 L (0.6-1.5) mg/dL Glucose 78 (70-110) mg/dL Calcium 8.4 L (8.7-10.3) mg/dL Total Bilirubin 0.50 (0.30-1.20) mg/dL AST 77 H (13-35) U/L ALT 32 (8-44) U/L Alkaline Phosphatase 384 H (41-126) U/L Total Protein 5.7 L (6.2-8.2) g/dL Albumin 2.8 L (3.8-4.9) g/dL - Imaging US - kidney/bladder: report reviewed Assessment and Plan (1) UTI (urinary tract infection) Current Visit: Yes Status: Acute Code(s): N39.0 - URINARY TRACT INFECTION, SITE NOT SPECIFIED SNOMED Code(s): 09869057 (2) Renal cyst Current Visit: Yes Status: Acute Code(s): N28.1 - CYST OF KIDNEY, ACQUIRED SNOMED Code(s): 820242254 Plan: The patient has a persistent MRSA UTI. She has failed outpatient oral antibiotic therapy. She is currently receiving ceftriaxone. The lack of hydronephrosis indicates that she will not require any urologic intervention. The postvoid residual will be checked to assess bladder emptying. Antibiotics should be changed to provide appropriate MRSA coverage. Time with Patient: Greater than 30
--- NOTE | 2021-10-31 08:43 | CDI ---
Documentation Clarification Form Date: 10/31/2021 08:32:10 AM From: Blanca Carrington CCS, CCDS Admit Date: 10/28/2021 03:49:00 PM Patient Name: Kristy Shaw Visit Number: [id number] Discharge Date: ATTENTION: The Clinical Documentation Specialists (CDI) and [facility] Coding Staff appreciate your assistance in clarifying documentation. Please respond to the clarification below the line at the bottom and electronically sign. The CDI & [facility] Coding staff will review the response and follow-up if needed. Please note: Queries are made part of the Legal Health Record. If you have any questions, please contact the author of this message via ITS. Dr. Kleber Page: The following is documented in the 10/29 History & Physical: Confusion secondary to Urinary Tract Infection. Additional clarification regarding the type of encephalopathy is requested. History/Risk Factors per the 10/29 H/P: Hypertension, Left Breast Cancer status post Lumpectomy with Lymph Nodes removed, Double Vision, Cataract, Bladder Infection, Memory Impairment, MRSA : Urine. Clinical Indicators: Presented to the ED on 10/28 from an Assisted Living Facility with Altered Mental Status and Frequent Falls. Was also in the ED the day prior after a fall, had a topical adhesive placed to her posterior scalp. Admit with Fall, UTI 10/28 VS: T 98.0, P 82, R 16, BP 128/112, PO 95 RA, BMI: 21.9 10/28 LAB: Hgb 9.3, Hct 31.1; Na 136, BUN 18, Glucose 101, Lactic Acid 2.6^^, AST 105, ALT 36, Alk Phos 451, Creatine Kinase 575, Albumin 3.3, TSH 6.940 10/28 UA: Cloudy, 2+ Protein, Trace Ketones, Moderate Blood, Positive Nitrite, Large Esterase, RBC 167, WBC >182, Hyaline Casts 10 10/28 CT Brain: No acute intracranial hemorrhage or midline shift. There is diffuse age-related cerebral atrophy. Treatment 10/28: Fall precautions, Neurological Assessments, O2 2Lnc, IV Rocephin 50 mls @ 100 mls/hr q12H, IV Na Cl 1,000 mls @ 75 mls/hr q13H Please clarify the following: [ x ] Metabolic Encephalopathy [ ] Septic Encephalopathy [ ] Other, please specify: [ ] Unable to determine (Template Last Revised: August 2020) MTDD
[2021-10-31 09:13] LABS: Basophils # (A) 0.03 X 10*3/uL (0.00-0.10); Basophils % (A) 0.5 %; Eosinophils # (A) 0.05 X 10*3/uL (0.04-0.35); Eosinophils % (A) 0.9 %; HCT 27.2 % (37.2-46.3); Immature Grans, Automated 1.6 %; Lymphocytes # (A) 0.86 X 10*3/uL (0.90-5.00); Lymphocytes % (A) 14.9 %; MCH 22.9 pg (27.0-32.0); MCHC 29.4 g/dL (32.0-37.0); MCV 77.9 fL (80.0-97.0); Mean Platelet Volume 11.6 fL (9.5-12.2); Monocytes # (A) 0.56 X 10*3/uL (0.20-1.00); Monocytes % (A) 9.7 %; NRBC Per 100 WBC 0 /100 WBCS (0.0-0.0); Neutrophils % (A) 72.4 %; Platelet Count 269 X 10*3/uL (140-440); RBC 3.49 X 10*6/uL (4.10-5.20); RDW 20.5 % (11.5-14.5); WBC 5.79 X 10*3/uL (4.50-10.00)
[2021-10-31 09:56] LABS: African American GFR (CKD) 104.5 (60.0-200.0); Albumin 2.7 g/dL (3.8-4.9); Albumin/Globulin Ratio 0.93 (1.60-3.17); Anion Gap 11.9 mmol/L (10.00-18.00); BUN/Creat Ratio 17.6 Ratio (12.00-20.00); Blood Urea Nitrogen 8.8 mg/dL (9.0-27.0); Calcium 8.2 mg/dL (8.7-10.3); Carbon Dioxide 16.1 mmol/L (20.0-27.5); Globulin 2.9 g/dL (1.6-3.3); Non-African American GFR(CKD) 90.1 (60.0-200.0); Potassium 4.1 mmol/L (3.5-5.5); Total Bilirubin 0.4 mg/dL (0.30-1.20); Total Protein 5.6 g/dL (6.2-8.2)
[2021-10-31] MEDS ORDERED: VANCOMYCIN IV PER PHARMACY 1 EACH MISC MISCELLANE PRN (15:41)
[2021-10-31] MEDS: SODIUM FERRIC GLUCONAT-SUCROSE 125 MG in SODIUM CHLORIDE 0.9% 100 ML IVPB SCH (16:47)
[2021-10-31] MEDS: VANCOMYCIN 1,250 MG in SODIUM CHLORIDE 0.9% 250 ML IVPB SCH (18:18)
--- NOTE | 2021-10-31 19:12 | P.PN ---
Subjective Progress Note Date: 10/30/21 This is an 81-year-old female patient of Dr. Dalal presented to the ER with concerns of frequent falls patient is currently residing at assisted living facility and also concerns of confusion. Patient does appear to be a poor historian at this time. Patient does have a past medical history of essential hypertension, eye disorder, left breast cancer, memory impairment, and UTIs, anxiety and depression. Chest x-ray was performed showing no acute cardiopulmonary process. Head CT was performed showing no acute intracranial hemorrhage or midline shift there is diffuse age-related cerebral atrophy. UA positive for urinary tract infection. Initial lactic acid 2. 6 repeat lactic acid 2.0. Urine culture ordered. Patient started on Rocephin. At this time patient is resting comfortably in bed intermittent episodes of confusion. No other neurological symptoms at this time. Repeat labs have been ordered. PT OT and social work services consulted On 10/30/2021 patient was seen and examined on the medical floor she is alert, confused, in no apparent distress there is no fever or chills no headache or dizziness no chest pain no shortness of breath no cough no nausea or vomiting no abdominal pain no diarrhea and no urinary symptoms. Patient has urinary tract infection and was started on IV Rocephin in the emergency room, she also has evidence of iron deficiency anemia and was started on IV iron, patient is medically stable and improving gradually Objective - Vital Signs Vital signs: Vital Signs Temp 97.7 F 10/30/21 07:43 Pulse 80 10/30/21 07:43 Resp 19 10/30/21 07:43 BP 107/57 10/30/21 07:43 Pulse Ox 95 10/30/21 07:43 Intake & Output 10/29/21 10/30/21 10/30/21 18:59 06:59 18:59 Intake Total 480 Output Total 200 Balance 280 Intake: Oral 480 Output: Urine 200 Other: Voiding Method Diaper Diaper Diaper Incontinent Incontinent Incontinent External Catheter External Catheter # Voids 1 1 # Bowel Movements 1 - Exam Head normocephalic Neck supple Lungs clear to auscultation bilaterally no wheezing or crackles Heart regular rate and rhythm S1-S2, no rub or gallop Abdomen is soft nontender nondistended positive bowel sounds no hepatosplenomegaly Extremities no edema Neuro alert and orientated to 3. Intermittent episodes of confusion - Labs CBC & Chem 7: 10/31/21 05:10 10/31/21 05:10 Labs: Abnormal Lab Results - Last 24 Hours (Table) 10/29/21 Range/Units 11:09 Iron 17 L (50-170) ug/dL % Saturation 5.19 L (12.00-45.00) Assessment and Plan Assessment: 1. Frequent falls. Head CT was negative 2. Urinary tract infection. Urine culture ordered patient started on Rocephin 3. Confusion secondary to urinary tract infection 4. Anemia. Hemoglobin 8.5 will order stool for occult blood 5. History of essential hypertension 6. History of memory impairment 7. History of breast cancer 8. Anxiety and depression 9. Elevated liver enzymes. These do appear to be trending down repeat labs ordered for a.m. DVT prophylaxis Lovenox. GI prophylaxis Protonix Continue IV Rocephin Urine culture ordered Stool for occult blood ordered Continue normal saline at 75 'Repeat labs ordered Plan: 1. Frequent falls. Head CT was negative 2. Urinary tract infection. Urine culture ordered patient started on Rocephin 3. Confusion secondary to urinary tract infection 4. Anemia. Hemoglobin 8.5 will order stool for occult blood 5. History of essential hypertension 6. History of memory impairment 7. History of breast cancer 8. Anxiety and depression 9. Elevated liver enzymes. These do appear to be trending down repeat labs ordered for a.m. DVT prophylaxis Lovenox. GI prophylaxis Protonix Continue IV Rocephin Urine culture ordered Stool for occult blood ordered Continue normal saline at 75 'Repeat labs ordered
--- NOTE | 2021-10-31 19:13 | P.PN ---
Subjective Progress Note Date: 10/31/21 This is an 81-year-old female patient of Dr. Dalal presented to the ER with concerns of frequent falls patient is currently residing at assisted living facility and also concerns of confusion. Patient does appear to be a poor historian at this time. Patient does have a past medical history of essential hypertension, eye disorder, left breast cancer, memory impairment, and UTIs, anxiety and depression. Chest x-ray was performed showing no acute cardiopulmonary process. Head CT was performed showing no acute intracranial hemorrhage or midline shift there is diffuse age-related cerebral atrophy. UA positive for urinary tract infection. Initial lactic acid 2. 6 repeat lactic acid 2.0. Urine culture ordered. Patient started on Rocephin. At this time patient is resting comfortably in bed intermittent episodes of confusion. No other neurological symptoms at this time. Repeat labs have been ordered. PT OT and social work services consulted On 10/30/2021 patient was seen and examined on the medical floor she is alert, confused, in no apparent distress there is no fever or chills no headache or dizziness no chest pain no shortness of breath no cough no nausea or vomiting no abdominal pain no diarrhea and no urinary symptoms. Patient has urinary tract infection and was started on IV Rocephin in the emergency room, she also has evidence of iron deficiency anemia and was started on IV iron, patient is medically stable and improving gradually Objective - Vital Signs Vital signs: Vital Signs Temp 97.7 F 10/31/21 14:00 Pulse 84 10/31/21 14:00 Resp 16 10/31/21 14:00 BP 131/76 10/31/21 14:00 Pulse Ox 99 10/31/21 14:00 Intake & Output 10/31/21 10/31/21 11/01/21 06:59 18:59 06:59 Output Total 230 Balance -230 Output: Post Void Residual 230 Other: Voiding Method Bedside Commode Bedside Commode Bedpan Bedpan Diaper Diaper Incontinent Incontinent # Voids 1 1 - Exam Head normocephalic Neck supple Lungs clear to auscultation bilaterally no wheezing or crackles Heart regular rate and rhythm S1-S2, no rub or gallop Abdomen is soft nontender nondistended positive bowel sounds no hepatosplenomegaly Extremities no edema Neuro alert and orientated to 3. Intermittent episodes of confusion - Labs CBC & Chem 7: 10/31/21 05:10 05/03/22 05:10 Labs: Abnormal Lab Results - Last 24 Hours (Table) 10/31/21 10/31/21 Range/Units 05:10 05:10 RBC 3.49 L (4.10-5.20) X 10*6/uL Hgb 8.0 L (12.0-15.0) g/dL Hct 27.2 L (37.2-46.3) % MCV 77.9 L (80.0-97.0) fL MCH 22.9 L (27.0-32.0) pg MCHC 29.4 L (32.0-37.0) g/dL RDW 20.5 H (11.5-14.5) % Immature Gran # 0.09 H (0.00-0.04) X 10*3/uL Lymphocytes # 0.86 L (0.90-5.00) X 10*3/uL Carbon Dioxide 16.1 L (20.0-27.5) mmol/L BUN 8.8 L (9.0-27.0) mg/dL Creatinine 0.5 L (0.6-1.5) mg/dL Calcium 8.2 L (8.7-10.3) mg/dL AST 77 H (13-35) U/L Alkaline Phosphatase 370 H (41-126) U/L Total Protein 5.6 L (6.2-8.2) g/dL Albumin 2.7 L (3.8-4.9) g/dL Albumin/Globulin Ratio 0.93 L (1.60-3.17) g/dL Microbiology - Last 24 Hours (Table) 10/28/21 14:24 Urine Culture - Final Urine,Catheterized Methicillin resist S. aureus Assessment and Plan Plan: 1. Frequent falls. Head CT was negative 2. Urinary tract infection. Urine culture ordered patient started on Rocephin, today culture is positive for MRSA in the urine IV antibiotic was switched to IV vancomycin consultation for Dr. Alarcon was initiated 3. Confusion secondary to urinary tract infection , improving 4. Anemia. Hemoglobin 8.5 will order stool for occult blood, patient has evidence of iron deficiency anemia she was started on IV Venofer 5. History of essential hypertension 6. History of memory impairment 7. History of breast cancer 8. Anxiety and depression 9. Elevated liver enzymes. These do appear to be trending down repeat labs ordered for a.m. DVT prophylaxis Lovenox. GI prophylaxis Protonix Continue IV Rocephin Urine culture ordered Stool for occult blood ordered Continue normal saline at 75 'Repeat labs ordered
[2021-10-31] MEDS: AMITRIPTYLINE HCL 25 MG TAB PO SCH (21:08)
--- NOTE | 2021-10-31 23:17 | P.CONS ---
History of Present Illness - Reason for Consult Consult date: 10/31/21 - History of Present Illness Patient is 81-year-old female presented to the hospital 3 days ago on 10/28/2021 patient presented with weakness and frequent falls in this patient who is a resident of assisted living facility apparently the patient have 5-7 falls over the last couple of days patient complaining of weakness no energy denies having any headache no URI symptoms therapy denies having any chest pain or shortness of breath or cough no abdominal pain or she complaining of some burning of urine has suprapubic discomfort patient on presentation to the hospital was afebrile and no fever recorded subsequently patient did have a normal white count patient did have elevated BUN and creatinine was normal AST was mildly elevated patient did have positive UA with large leukocyte Estrace more than 1-2 WBC with urine culture have been finalized with MRSA patient antibiotic was switched over to vancomycin today previously treated with Rocephin infectious disease was consulted for further management of antibiotic therapy patient did have a chest x-ray no acute cardiopulmonary process she did have a abdominal bladder ultrasound no evidence of hydronephrosis multiple liver masses right renal cyst Past Medical History Past Medical History: Eye Disorder, Hypertension Additional Past Medical History / Comment(s): left breast CA with lymph node involvement- 2001, double vision, cataract, bladder infection, memory impairment History of Any Multi-Drug Resistant Organisms: MRSA Year Discovered:: 10/28/21 MDRO Source:: URINE Past Surgical History: Hysterectomy Additional Past Surgical History / Comment(s): left breast lumpectomy with 16 lymph nodes removed. biopsy rt breast, colon resection not due to surgery Past Anesthesia/Blood Transfusion Reactions: No Reported Reaction Past Psychological History: Anxiety, Depression Smoking Status: Former smoker Past Alcohol Use History: Rare - Past Family History Mother Family Medical History: No Reported History Medications and Allergies Home Medications Medication Instructions Recorded Confirmed Type Amitriptyline HCl [Elavil] 25 mg PO HS 12/26/20 10/28/21 History Metoprolol Succinate (ER) [Toprol 50 mg PO DAILY 12/26/20 10/28/21 History Xl] Docusate [Colace] 100 mg PO DAILY PRN 01/03/21 10/28/21 History Meclizine [Antivert] 25 mg PO DAILY 10/27/21 10/28/21 History Allergies Allergy/AdvReac Type Severity Reaction Status Date / Time No Known Allergies Allergy Verified 10/28/21 16:28 Physical Exam Vitals: Vital Signs Temp Pulse Resp BP Pulse Ox 10/31/21 19:02 98.2 F 81 17 139/61 98 10/31/21 14:00 97.7 F 84 16 131/76 99 10/31/21 07:54 97.7 F 75 18 155/76 95 10/31/21 00:26 98.2 F 81 16 144/72 95 Intake and Output 10/31/21 10/31/21 11/01/21 14:59 22:59 06:59 Output Total 230 Balance -230 Output: Post Void Residual 230 Other: Voiding Method Bedside Commode Bedpan Diaper Incontinent # Voids 1 Results CBC & Chem 7: 10/31/21 05:10 10/31/21 05:10 Labs: Abnormal Lab Results - Last 24 Hours (Table) 10/31/21 10/31/21 Range/Units 05:10 05:10 RBC 3.49 L (4.10-5.20) X 10*6/uL Hgb 8.0 L (12.0-15.0) g/dL Hct 27.2 L (37.2-46.3) % MCV 77.9 L (80.0-97.0) fL MCH 22.9 L (27.0-32.0) pg MCHC 29.4 L (32.0-37.0) g/dL RDW 20.5 H (11.5-14.5) % Immature Gran # 0.09 H (0.00-0.04) X 10*3/uL Lymphocytes # 0.86 L (0.90-5.00) X 10*3/uL Carbon Dioxide 16.1 L (20.0-27.5) mmol/L BUN 8.8 L (9.0-27.0) mg/dL Creatinine 0.5 L (0.6-1.5) mg/dL Calcium 8.2 L (8.7-10.3) mg/dL AST 77 H (13-35) U/L Alkaline Phosphatase 370 H (41-126) U/L Total Protein 5.6 L (6.2-8.2) g/dL Albumin 2.7 L (3.8-4.9) g/dL Albumin/Globulin Ratio 0.93 L (1.60-3.17) g/dL Assessment and Plan (1) UTI (urinary tract infection) Current Visit: Yes Status: Acute Code(s): N39.0 - URINARY TRACT INFECTION, SITE NOT SPECIFIED SNOMED Code(s): 94854408 Plan: 1patient was in the hospital with weakness multiple falls which is likely multi factorial in this patient did have a positive UA concerning for possible symptomatic urinary tract infection with a urine finalized with MRSA likely the infected pathogen less likely colonization. 2we will repeat her urine cultures. 3vancomycin pharmacy to dose target trough of 15 while watching kidney function and vancomycin trough closely We will follow on clinical condition and cultures to further adjust medication if needed Thank you for this consultation will follow this patient along with you
[2021-11-01] MEDS: SODIUM CHLORIDE 0.9% 1,000 ML IV SCH ×2 (01:52→13:01)
[2021-11-01] MEDS: VANCOMYCIN 1,250 MG in SODIUM CHLORIDE 0.9% 250 ML IVPB SCH ×2 (04:56→16:39)
[2021-11-01 05:04] LABS: African American GFR (CKD) >90 (>60 ml/min/1.73 sqM); C Reactive Protein 6.7 mg/dL (<1.0); Non-African American GFR(CKD) 88 (>60 ml/min/1.73 sqM)
[2021-11-01] MEDS: LEVOTHYROXINE 25 MCG TAB PO SCH (06:16)
[2021-11-01 07:06] LABS: Appearance,Urine Clear (Clear); Bilirubin,Urine Negative (Negative); Blood,Urine Negative (Negative); Color,Urine Yellow; Glucose,Urine (UA) Negative (Negative); Ketones,Urine Negative (Negative); Leukocyte Esterase,Urine Negative (Negative); Nitrite,Urine Negative (Negative); PH, Urine 6.5 (5.0-8.0); Protein,Urine Negative (Negative); Specific Gravity,Urine 1.019 (1.001-1.035)
[2021-11-01] MEDS: MECLIZINE 25 MG TAB PO SCH (08:09)
[2021-11-01] MEDS: METOPROLOL SUCCINATE (ER) 50 MG TAB.ER.24H PO SCH (08:09)
[2021-11-01] MEDS: PANTOPRAZOLE 40 MG TABLET PO SCH (08:09)
[2021-11-01] MEDS: ENOXAPARIN 40 MG/0.4 ML SYRINGE SQ SCH (08:10)
--- NOTE | 2021-11-01 08:27 | P.PN ---
Progress Note - Text Progress Note Date: 11/01/21 The patient is currently receiving vancomycin for her MRSA UTI. She is afebrile with stable vital signs. Her WBC count is normal. She reports very minimal occasional dysuria. She is being followed by Dr. Alarcon. She had a similar UTI in August, treated with a 7 day course of Bactrim DS. She will obviously require a different regimen in order to eradicate her MRSA UTI.
[2021-11-01 10:03] LABS: Anisocytosis Slight; Basophils # (A) 0.1 k/uL (0-0.2); Basophils % (A) 1 %; Eosinophils # (A) 0.1 k/uL (0-0.7); Eosinophils % (A) 1 %; HCT 30.5 % (34.0-46.0); HGB 8.2 gm/dL (11.4-16.0); Hypochromasia Marked; Lymphocytes # (A) 0.7 k/uL (1.0-4.8); Lymphocytes % (A) 12 %; MCH 23.1 pg (25.0-35.0); Mean Platelet Volume 8.4; Monocytes # (A) 0.4 k/uL (0-1.0); Monocytes % (A) 7 %; Neutrophils % (A) 76 %; Platelet Count 248 k/uL (150-450); RBC 3.56 m/uL (3.80-5.40); RDW 18.7 % (11.5-15.5); WBC 5.3 k/uL (3.8-10.6)
[2021-11-01 10:04] LABS: MCV 85.7 fL (80.0-100.0)
--- NOTE | 2021-11-01 10:14 | P.PN ---
Subjective Progress Note Date: 11/01/21 This is an 81-year-old female patient of Dr. Dalal presented to the ER with concerns of frequent falls patient is currently residing at assisted living facility and also concerns of confusion. Patient does appear to be a poor historian at this time. Patient does have a past medical history of essential hypertension, eye disorder, left breast cancer, memory impairment, and UTIs, anxiety and depression. Chest x-ray was performed showing no acute cardiopulmonary process. Head CT was performed showing no acute intracranial hemorrhage or midline shift there is diffuse age-related cerebral atrophy. UA positive for urinary tract infection. Initial lactic acid 2. 6 repeat lactic acid 2.0. Urine culture ordered. Patient started on Rocephin. At this time patient is resting comfortably in bed intermittent episodes of confusion. No other neurological symptoms at this time. Repeat labs have been ordered. PT OT and social work services consulted On 10/30/2021 patient was seen and examined on the medical floor she is alert, confused, in no apparent distress there is no fever or chills no headache or dizziness no chest pain no shortness of breath no cough no nausea or vomiting no abdominal pain no diarrhea and no urinary symptoms. Patient has urinary tract infection and was started on IV Rocephin in the emergency room, she also has evidence of iron deficiency anemia and was started on IV iron, patient is medically stable and improving gradually On 10/31/2021 patient is more alert today resting comfortably in bed. Antibiotics have been adjusted to IV vancomycin for MRSA. Urology and infectious disease services are following repeat UA and culture has been ordered per ID recommendation. PT OT following. Social work services following for discharge planning patient may require rehab placement upon discharge. At this time patient denies chest pain or shortness of breath. Patient denies nausea vomiting or diarrhea. Patient denies any urinary burning or frequency Objective - Vital Signs Vital signs: Vital Signs Temp 98.0 F 11/01/21 08:00 Pulse 74 11/01/21 08:00 Resp 16 11/01/21 08:00 BP 154/80 11/01/21 08:00 Pulse Ox 96 11/01/21 08:00 Intake & Output 10/31/21 11/01/21 11/01/21 18:59 06:59 18:59 Output Total 230 Balance -230 Output: Post Void Residual 230 Other: Voiding Method Bedside Commode Toilet Bedpan Diaper Diaper Incontinent Incontinent # Voids 1 5 - Exam Head normocephalic Neck supple Lungs clear to auscultation bilaterally no wheezing or crackles Heart regular rate and rhythm S1-S2, no rub or gallop Abdomen is soft nontender nondistended positive bowel sounds no hepatosple nomegaly Extremities no edema Neuro alert and orientated to 3. Intermittent episodes of confusion - Labs CBC & Chem 7: 10/31/21 05:10 11/01/21 03:23 Labs: Abnormal Lab Results - Last 24 Hours (Table) 11/01/21 11/01/21 Range/Units 03:23 03:23 C-Reactive Protein 6.7 H (<1.0) mg/dL Procalcitonin 0.17 H (0.02-0.09) ng/mL Assessment and Plan Assessment: 1. Frequent falls. Head CT was negative 2. Urinary tract infection positive for MRSA with sepsis present on admission. Patient has failed outpatient treatment previously for UTI with MRSA on Bactrim. Patient currently on IV vancomycin infectious see services are following repeat UA and culture has been ordered per ID neurology services have been consulted 3. Confusion secondary to urinary tract infection improving. 4. iron deficiency Anemia. 5. History of essential hypertension 6. History of memory impairment 7. History of breast cancer 8. Anxiety and depression 9. Elevated liver enzymes. These do appear to be trending down repeat labs ordered for a.m. improving DVT prophylaxis Lovenox. GI prophylaxis Protonix Maintained on IV vancomycin Repeat UA and culture ordered Infectious disease and urology services are following PT OT and social work services, for discharge planning She will likely require rehab upon discharge
[2021-11-01 10:23] LABS: ALT 25 U/L (4-34); AST 68 U/L (14-36); African American GFR (CKD) >90 (>60 ml/min/1.73 sqM); Albumin 2.4 g/dL (3.5-5.0); Albumin/Globulin Ratio 0.8; Alkaline Phosphatase 319 U/L (38-126); Anion Gap 7 mmol/L; Blood Urea Nitrogen 7 mg/dL (7-17); Carbon Dioxide 16 mmol/L (22-30); Chloride 111 mmol/L (98-107); Glucose 94 mg/dL (74-99); Non-African American GFR(CKD) >90 (>60 ml/min/1.73 sqM); Sodium 134 mmol/L (137-145); Total Bilirubin 0.5 mg/dL (0.2-1.3); Total Protein 5.4 g/dL (6.3-8.2)
[2021-11-01 10:25] LABS: Potassium 3.8 mmol/L (3.5-5.1)
[2021-11-01] MEDS: SODIUM FERRIC GLUCONAT-SUCROSE 125 MG in SODIUM CHLORIDE 0.9% 100 ML IVPB SCH (13:01)
--- NOTE | 2021-11-01 20:40 | P.PN ---
Subjective Progress Note Date: 11/01/21 Principal diagnosis: MRSA urinary tract infection Patient is a 81-year-old female presented to the hospital for weakness and frequent falls and this patient is to have a positive UA with area subsequently showing MRSA and the patient has: MRSA in her urine for the last 2 months, ultrasound was negative for hydronephrosis. On today's evaluation that is 11/01/2021, patient denies having any fever or chills complaining of feeling nauseous but no vomiting no abdominal pain no diarrhea or dysuria Objective - Vital Signs Vital signs: Vital Signs Temp 98.0 F 11/01/21 08:00 Pulse 74 11/01/21 08:00 Resp 16 11/01/21 08:00 BP 154/80 11/01/21 08:00 Pulse Ox 96 11/01/21 08:00 Intake & Output 10/31/21 11/01/21 11/01/21 18:59 06:59 18:59 Output Total 230 Balance -230 Output: Post Void Residual 230 Other: Voiding Method Bedside Commode Toilet Toilet Bedpan Diaper Bedside Commode Diaper Incontinent Diaper Incontinent Incontinent # Voids 1 5 - Exam GENERAL DESCRIPTION: An elderly female lying in bed in no distress RESPIRATORY SYSTEM: Unlabored breathing , decreased breath sounds at bases HEART: S1 S2 regular rate and rhythm , ABDOMEN: Soft , no tenderness EXTREMITIES: No edema feet - Labs CBC & Chem 7: 11/01/21 09:37 11/01/21 09:37 Labs: Abnormal Lab Results - Last 24 Hours (Table) 11/01/21 11/01/21 11/01/21 Range/Units 03:23 03:23 09:37 RBC 3.56 L (3.80-5.40) m/uL Hgb 8.2 L (11.4-16.0) gm/dL Hct 30.5 L (34.0-46.0) % MCH 23.1 L (25.0-35.0) pg MCHC 27.0 L (31.0-37.0) g/dL RDW 18.7 H (11.5-15.5) % Lymphocytes # 0.7 L (1.0-4.8) k/uL Sodium (137-145) mmol/L Chloride (98-107) mmol/L Carbon Dioxide (22-30) mmol/L Creatinine (0.52-1.04) mg/dL Calcium (8.4-10.2) mg/dL AST (14-36) U/L Alkaline Phosphatase (38-126) U/L C-Reactive Protein 6.7 H (<1.0) mg/dL Total Protein (6.3-8.2) g/dL Albumin (3.5-5.0) g/dL Procalcitonin 0.17 H (0.02-0.09) ng/mL 11/01/21 Range/Units 09:37 RBC (3.80-5.40) m/uL Hgb (11.4-16.0) gm/dL Hct (34.0-46.0) % MCH (25.0-35.0) pg MCHC (31.0-37.0) g/dL RDW (11.5-15.5) % Lymphocytes # (1.0-4.8) k/uL Sodium 134 L (137-145) mmol/L Chloride 111 H (98-107) mmol/L Carbon Dioxide 16 L (22-30) mmol/L Creatinine 0.40 L (0.52-1.04) mg/dL Calcium 8.0 L (8.4-10.2) mg/dL AST 68 H (14-36) U/L Alkaline Phosphatase 319 H (38-126) U/L C-Reactive Protein (<1.0) mg/dL Total Protein 5.4 L (6.3-8.2) g/dL Albumin 2.4 L (3.5-5.0) g/dL Procalcitonin (0.02-0.09) ng/mL Assessment and Plan (1) UTI (urinary tract infection) Current Visit: Yes Status: Acute Code(s): N39.0 - URINARY TRACT INFECTION, SITE NOT SPECIFIED SNOMED Code(s): 82607253 Plan: 1patient was in the hospital with weakness multiple falls which is likely multifactorial in this patient did have a positive UA concerning for possible symptomatic urinary tract infection with a urine finalized with MRSA likely the infected pathogen less likely colonization. 2 ultrasound has been negative for any structural mobility and repeat UA is negative 3patient will continue with vancomycin pharmacy to dose target trough of 15 while watching kidney function and vancomycin trough closely Time with Patient: Less than 30
[2021-11-01] MEDS: AMITRIPTYLINE HCL 25 MG TAB PO SCH (20:49)
[2021-11-02] MEDS: ACETAMINOPHEN TAB 325 MG TAB PO PRN ×2 (02:43→16:37)
[2021-11-02] MEDS: LEVOTHYROXINE 25 MCG TAB PO SCH (04:18)
[2021-11-02] MEDS: VANCOMYCIN 1,250 MG in SODIUM CHLORIDE 0.9% 250 ML IVPB SCH ×2 (04:18→16:39)
[2021-11-02] MEDS: SODIUM CHLORIDE 0.9% 1,000 ML IV SCH ×2 (04:18→20:39)
[2021-11-02 07:39] LABS: Potassium 3.4 mmol/L (3.5-5.1)
[2021-11-02 07:40] LABS: ALT 27 U/L (4-34); AST 69 U/L (14-36); African American GFR (CKD) >90 (>60 ml/min/1.73 sqM); Albumin 2.4 g/dL (3.5-5.0); Albumin/Globulin Ratio 0.8; Alkaline Phosphatase 378 U/L (38-126); Anion Gap 5 mmol/L; Blood Urea Nitrogen 7 mg/dL (7-17); Calcium 8.3 mg/dL (8.4-10.2); Carbon Dioxide 23 mmol/L (22-30); Chloride 110 mmol/L (98-107); Globulin 3.1 g/dL; Glucose 78 mg/dL (74-99); Non-African American GFR(CKD) >90 (>60 ml/min/1.73 sqM); Sodium 138 mmol/L (137-145); Total Bilirubin 0.7 mg/dL (0.2-1.3); Total Protein 5.5 g/dL (6.3-8.2)
[2021-11-02] MEDS: PANTOPRAZOLE 40 MG TABLET PO SCH (08:31)
[2021-11-02] MEDS: METOPROLOL SUCCINATE (ER) 50 MG TAB.ER.24H PO SCH (08:31)
[2021-11-02] MEDS: MECLIZINE 25 MG TAB PO SCH (08:31)
[2021-11-02] MEDS: ENOXAPARIN 40 MG/0.4 ML SYRINGE SQ SCH (08:31)
[2021-11-02] MEDS: SODIUM FERRIC GLUCONAT-SUCROSE 125 MG in SODIUM CHLORIDE 0.9% 100 ML IVPB SCH (08:53)
[2021-11-02 09:31] LABS: Basophils # (A) 0.04 X 10*3/uL (0.00-0.10); Basophils % (A) 0.7 %; Eosinophils # (A) 0.07 X 10*3/uL (0.04-0.35); Eosinophils % (A) 1.2 %; HCT 26.9 % (37.2-46.3); Immature Grans, Automated 2.6 %; Lymphocytes # (A) 0.85 X 10*3/uL (0.90-5.00); MCH 22.9 pg (27.0-32.0); MCHC 29.7 g/dL (32.0-37.0); MCV 77.1 fL (80.0-97.0); Mean Platelet Volume 12.2 fL (9.5-12.2); Monocytes # (A) 0.61 X 10*3/uL (0.20-1.00); Monocytes % (A) 10.7 %; NRBC Per 100 WBC 0 /100 WBCS (0.0-0.0); Neutrophils # (A) 3.96 X 10*3/uL (1.80-7.70); Neutrophils % (A) 69.8 %; Platelet Count 290 X 10*3/uL (140-440); RBC 3.49 X 10*6/uL (4.10-5.20); RDW 21.1 % (11.5-14.5); WBC 5.68 X 10*3/uL (4.50-10.00)
--- NOTE | 2021-11-02 11:18 | P.PN ---
Progress Note - Text Progress Note Date: 11/02/21 The patient appears to be feeling much better. Specifically, she is awake and alert. She denies dysuria. She does report urgency with urge incontinence. She is afebrile with stable vital signs. Given the normal renal ultrasound, she will not require any urologic intervention. Antibiotic planned per ID.
[2021-11-02] MEDS ORDERED: VANCOMYCIN TROUGH DUE 1 EACH MISC MISCELLANE ONE (16:00)
[2021-11-02] MEDS: VANCOMYCIN 1,000 MG in SODIUM CHLORIDE 0.9% 250 ML IVPB SCH (18:12)
[2021-11-02] MEDS: AMITRIPTYLINE HCL 25 MG TAB PO SCH (20:39)
--- NOTE | 2021-11-02 21:57 | P.PN ---
Subjective Progress Note Date: 11/02/21 Principal diagnosis: MRSA urinary tract infection Patient is a 81-year-old female presented to the hospital for weakness and frequent falls and this patient is to have a positive UA with area subsequently showing MRSA and the patient has: MRSA in her urine for the last 2 months, ultrasound was negative for hydronephrosis. On today's evaluation that is 11/02/2021, patient remains to be afebrile, the patient is breathing comfortably denies any chest pain shortness of breath or cough no further nausea or vomiting no abdominal pain no diarrhea Objective - Vital Signs Vital signs: Vital Signs Temp 98.5 F 11/02/21 07:50 Pulse 75 11/02/21 07:50 Resp 16 11/02/21 07:50 BP 143/70 11/02/21 07:50 Pulse Ox 95 11/02/21 07:50 Intake & Output 11/01/21 11/02/21 11/02/21 18:59 06:59 18:59 Intake Total 296 Balance 296 Intake: Oral 296 Other: Voiding Method Toilet Toilet Toilet Bedside Commode Diaper Incontinent # Voids 4 5 # Bowel Movements 0 1 - Exam GENERAL DESCRIPTION: An elderly female lying in bed in no distress RESPIRATORY SYSTEM: Unlabored breathing , decreased breath sounds at bases HEART: S1 S2 regular rate and rhythm , ABDOMEN: Soft , no tenderness EXTREMITIES: No edema feet - Labs CBC & Chem 7: 11/02/21 07:07 11/02/21 07:07 Labs: Abnormal Lab Results - Last 24 Hours (Table) 11/02/21 11/02/21 Range/Units 07:07 07:07 RBC 3.49 L (4.10-5.20) X 10*6/uL Hgb 8.0 L (12.0-15.0) g/dL Hct 26.9 L (37.2-46.3) % MCV 77.1 L (80.0-97.0) fL MCH 22.9 L (27.0-32.0) pg MCHC 29.7 L (32.0-37.0) g/dL RDW 21.1 H (11.5-14.5) % Immature Gran # 0.15 H (0.00-0.04) X 10*3/uL Lymphocytes # 0.85 L (0.90-5.00) X 10*3/uL Potassium 3.4 L (3.5-5.1) mmol/L Chloride 110 H (98-107) mmol/L Creatinine 0.42 L (0.52-1.04) mg/dL Calcium 8.3 L (8.4-10.2) mg/dL AST 69 H (14-36) U/L Alkaline Phosphatase 378 H (38-126) U/L Total Protein 5.5 L (6.3-8.2) g/dL Albumin 2.4 L (3.5-5.0) g/dL Microbiology - Last 24 Hours (Table) 11/01/21 03:23 Blood Culture - Preliminary Blood No Growth after 24 hours Assessment and Plan (1) UTI (urinary tract infection) Current Visit: Yes Status: Acute Code(s): N39.0 - URINARY TRACT INFECTION, SITE NOT SPECIFIED SNOMED Code(s): 30406528 Plan: 1patient was in the hospital with weakness multiple falls which is likely multifactorial in this patient did have a positive UA concerning for possible symptomatic urinary tract infection with a urine finalized with MRSA likely the infected pathogen less likely colonization. 2 ultrasound has been negative for any structural mobility and repeat UA is negative 3patient seemed to have overall clinical improvement and is currently being t reated vancomycin pharmacy to dose target trough of 15 while watching kidney function and vancomycin trough closely Time with Patient: Less than 30
[2021-11-03] MEDS: ACETAMINOPHEN TAB 325 MG TAB PO PRN ×2 (00:08→09:38)
[2021-11-03] MEDS: VANCOMYCIN 1,000 MG in SODIUM CHLORIDE 0.9% 250 ML IVPB SCH ×2 (00:15→09:18)
[2021-11-03 01:36] VITALS: RESP 18
[2021-11-03 05:19] LABS: African American GFR (CKD) >90 (>60 ml/min/1.73 sqM); Non-African American GFR(CKD) 89 (>60 ml/min/1.73 sqM)
[2021-11-03] MEDS: LEVOTHYROXINE 25 MCG TAB PO SCH (05:42)
[2021-11-03] MEDS: SODIUM CHLORIDE 0.9% 1,000 ML IV SCH (07:49)
[2021-11-03] MEDS: SODIUM FERRIC GLUCONAT-SUCROSE 125 MG in SODIUM CHLORIDE 0.9% 100 ML IVPB SCH (07:49)
[2021-11-03] MEDS: MECLIZINE 25 MG TAB PO SCH (07:54)
[2021-11-03] MEDS: METOPROLOL SUCCINATE (ER) 50 MG TAB.ER.24H PO SCH (07:54)
[2021-11-03] MEDS: ENOXAPARIN 40 MG/0.4 ML SYRINGE SQ SCH (07:54)
[2021-11-03] MEDS: PANTOPRAZOLE 40 MG TABLET PO SCH (07:54)
[2021-11-03 08:05] VITALS: BP 136/65; PULSE 70; TEMP 97.6
--- NOTE | 2021-11-03 08:56 | P.PN ---
Progress Note - Text Progress Note Date: 11/03/21 Patient remains awake and alert. She denies dysuria. She does report increased urinary frequency, and consideration will be given to treating her as an outpatient with Gemtesa or Myrbetriq if this persists.
--- NOTE | 2021-11-03 10:37 | P.PN ---
Subjective Progress Note Date: 11/02/21 This is an 81-year-old female patient of Dr. Dalal presented to the ER with concerns of frequent falls patient is currently residing at assisted living facility and also concerns of confusion. Patient does appear to be a poor historian at this time. Patient does have a past medical history of essential hypertension, eye disorder, left breast cancer, memory impairment, and UTIs, anxiety and depression. Chest x-ray was performed showing no acute cardiopulmonary process. Head CT was performed showing no acute intracranial hemorrhage or midline shift there is diffuse age-related cerebral atrophy. UA positive for urinary tract infection. Initial lactic acid 2. 6 repeat lactic acid 2.0. Urine culture ordered. Patient started on Rocephin. At this time patient is resting comfortably in bed intermittent episodes of confusion. No other neurological symptoms at this time. Repeat labs have been ordered. PT OT and social work services consulted On 10/30/2021 patient was seen and examined on the medical floor she is alert, confused, in no apparent distress there is no fever or chills no headache or dizziness no chest pain no shortness of breath no cough no nausea or vomiting no abdominal pain no diarrhea and no urinary symptoms. Patient has urinary tract infection and was started on IV Rocephin in the emergency room, she also has evidence of iron deficiency anemia and was started on IV iron, patient is medically stable and improving gradually On 10/31/2021 patient is more alert today resting comfortably in bed. Antibiotics have been adjusted to IV vancomycin for MRSA. Urology and infectious disease services are following repeat UA and culture has been ordered per ID recommendation. PT OT following. Social work services following for discharge planning patient may require rehab placement upon discharge. At this time patient denies chest pain or shortness of breath. Patient denies nausea vomiting or diarrhea. Patient denies any urinary burning or frequency. On 11/01/2021 patient is resting comfortably in bed. Awaiting final ID recommendation. Discharge planning in place with case management. At this time patient denies chest pain or shortness of breath. Patient denies nausea vomiting or diarrhea. Patient denies any urinary burning or frequency. Objective - Vital Signs Vital signs: Vital Signs Temp 98 F 11/02/21 14:00 Pulse 75 11/02/21 14:00 Resp 16 11/02/21 14:00 BP 130/70 11/02/21 14:00 Pulse Ox 96 11/02/21 14:00 Intake & Output 11/01/21 11/02/21 11/02/21 18:59 06:59 18:59 Intake Total 888 Balance 888 Intake: Oral 888 Other: Voiding Method Toilet Toilet Toilet Bedside Commode Diaper Incontinent # Voids 4 5 4 # Bowel Movements 0 1 - Exam Head normocephalic Neck supple Lungs clear to auscultation bilaterally no wheezing or crackles Heart regular rate and rhythm S1-S2, no rub or gallop Abdomen is soft nontender nondistended positive bowel sounds no hepatosple nomegaly Extremities no edema Neuro alert and orientated to 3. Intermittent episodes of confusion - Labs CBC & Chem 7: 11/02/21 07:07 11/03/21 04:34 Labs: Abnormal Lab Results - Last 24 Hours (Table) 11/02/21 11/02/21 Range/Units 07:07 07:07 RBC 3.49 L (4.10-5.20) X 10*6/uL Hgb 8.0 L (12.0-15.0) g/dL Hct 26.9 L (37.2-46.3) % MCV 77.1 L (80.0-97.0) fL MCH 22.9 L (27.0-32.0) pg MCHC 29.7 L (32.0-37.0) g/dL RDW 21.1 H (11.5-14.5) % Immature Gran # 0.15 H (0.00-0.04) X 10*3/uL Lymphocytes # 0.85 L (0.90-5.00) X 10*3/uL Potassium 3.4 L (3.5-5.1) mmol/L Chloride 110 H (98-107) mmol/L Creatinine 0.42 L (0.52-1.04) mg/dL Calcium 8.3 L (8.4-10.2) mg/dL AST 69 H (14-36) U/L Alkaline Phosphatase 378 H (38-126) U/L Total Protein 5.5 L (6.3-8.2) g/dL Albumin 2.4 L (3.5-5.0) g/dL Microbiology - Last 24 Hours (Table) 11/01/21 03:23 Blood Culture - Preliminary Blood No Growth after 24 hours Assessment and Plan Plan: 1. Frequent falls. Head CT was negative 2. Urinary tract infection. Urine culture ordered patient started on Rocephin, today culture is positive for MRSA in the urine IV antibiotic was switched to IV vancomycin consultation for Dr. Alarcon was initiated 3. Confusion secondary to urinary tract infection , improving 4. Anemia. Hemoglobin 8.5 will order stool for occult blood, patient has evidence of iron deficiency anemia she was started on IV Venofer 5. History of essential hypertension 6. History of memory impairment 7. History of breast cancer 8. Anxiety and depression 9. Elevated liver enzymes. These do appear to be trending down repeat labs ordered for a.m. DVT prophylaxis Lovenox. GI prophylaxis Protonix Continue IV Rocephin Urine culture ordered Stool for occult blood ordered Continue normal saline at 75 'Repeat labs ordered
--- NOTE | 2021-11-03 13:01 | P.DS ---
Providers Date of admission: 10/28/21 15:49 Expected date of discharge: 11/03/21 Attending physician: Kleber Page Consults: 10/30/21 13:33 Consult Physician Routine Consulting Provider: Reece Rodgers Consult Reason/Comments: recurrent UTI Do you want consulting provider notified?: Yes 10/31/21 15:42 Consult Physician Routine Consulting Provider: Yenny Alarcon Consult Reason/Comments: uti Do you want consulting provider notified?: Yes Primary care physician: Oleksandr Dalal [facility] Course: Diagnosis on discharge: 1. Frequent falls. Head CT was negative 2. Urinary tract infection. Urine culture ordered patient started on Rocephin, today culture is positive for MRSA in the urine IV antibiotic was switched to IV vancomycin consultation for Dr. Alarcon was initiated, patient received IV vancomycin during this hospitalization, repeat urine analysis was negative, recommendation by infectious disease was to stop IV vancomycin and discharged patient on oral Bactrim. Urology consultation was requested, kidney ultrasound was done and there was no abnormality seen, patient had mild post void residual, no intervention or medication was recommended by urology in that regard. 3. Confusion secondary to urinary tract infection , resolved 4. Anemia. Hemoglobin 8.5 will order stool for occult blood, patient has evidence of iron deficiency anemia she was started on IV Venofer 5. History of essential hypertension 6. History of memory impairment 7. History of breast cancer 8. Anxiety and depression 9. Elevated liver enzymes. These do appear to be trending down repeat labs ordered for a.m. Hospital course: This is an 81-year-old female patient of Dr. Dalal presented to the ER with con cerns of frequent falls patient is currently residing at assisted living facility and also concerns of confusion. Patient does appear to be a poor historian at this time. Patient does have a past medical history of essential hypertension, eye disorder, left breast cancer, memory impairment, and UTIs, anxiety and depression. Chest x-ray was performed showing no acute cardiopulmonary process. Head CT was performed showing no acute intracranial hemorrhage or midline shift there is diffuse age-related cerebral atrophy. UA positive for urinary tract infection. Initial lactic acid 2. 6 repeat lactic acid 2.0. Urine culture ordered. Patient started on Rocephin. At this time patient is resting comfortably in bed intermittent episodes of confusion. No other neurological symptoms at this time. Repeat labs have been ordered. PT OT and social work services consulted On 10/30/2021 patient was seen and examined on the medical floor she is alert, confused, in no apparent distress there is no fever or chills no headache or dizziness no chest pain no shortness of breath no cough no nausea or vomiting no abdominal pain no diarrhea and no urinary symptoms. Patient has urinary tract infection and was started on IV Rocephin in the emergency room, she also has evidence of iron deficiency anemia and was started on IV iron, patient is medically stable and improving gradually On 10/31/2021 patient is more alert today resting comfortably in bed. Antibiotics have been adjusted to IV vancomycin for MRSA. Urology and infectious disease services are following repeat UA and culture has been ordered per ID recommendation. PT OT following. Social work services following for discharge planning patient may require rehab placement upon discharge. At this time patient denies chest pain or shortness of breath. Patient denies nausea vomiting or diarrhea. Patient denies any urinary burning or frequency. On 11/01/2021 patient is resting comfortably in bed. Awaiting final ID recommen dation. Discharge planning in place with case management. At this time patient denies chest pain or shortness of breath. Patient denies nausea vomiting or diarrhea. Patient denies any urinary burning or frequency. On 11/02/2021 patient is resting comfortably in bed. there is no fever or chills no headache or dizziness no chest pain no shortness of breath no cough no nausea or vomiting no abdominal pain no diarrhea and no urinary symptoms. Awaiting final ID recommendation. On 11/03/2021 patient was seen and examined on the medical floor she is alert and oriented 3 in no apparent distress, she is sitting up in a chair and answering questions appropriately, she is denying any symptoms at this time. Recommendation by infectious disease is to continue was a course of oral Bactrim as outpatient. Due to physical debility and multiple falls patient was accepted at [facility] for rehabilitation. Plan for discharge today. Plan - Discharge Summary New Discharge Prescriptions: New Pantoprazole [Protonix] 40 mg PO AC-BRKFST tab Levothyroxine Sodium [Synthroid] 25 mcg PO DAILY@0630 tab Continue Metoprolol Succinate (ER) [Toprol XL] 50 mg PO DAILY Docusate [Colace] 100 mg PO DAILY PRN PRN Reason: Constipation Meclizine [Antivert] 25 mg PO DAILY Amitriptyline HCl [Elavil] 25 mg PO HS Discharge Medication List Amitriptyline HCl [Elavil] 25 mg PO HS 12/26/20 [History] Metoprolol Succinate (ER) [Toprol XL] 50 mg PO DAILY 12/26/20 [History] Docusate [Colace] 100 mg PO DAILY PRN 01/03/21 [History] Meclizine [Antivert] 25 mg PO DAILY 10/27/21 [History] Levothyroxine Sodium [Synthroid] 25 mcg PO DAILY@0630 tab 11/03/21 [Rx] Pantoprazole [Protonix] 40 mg PO AC-BRKFST tab 11/03/21 [Rx] Follow up Appointment(s)/Referral(s): Riley Vega, [NON-STAFF] - As Needed Oleksandr Dalal MD [Primary Care Provider] - 1-2 days
[2021-11-03 14:16] VITALS: BMI 21.9
--- NOTE | 2021-11-03 15:21 | P.PN ---
Subjective Progress Note Date: 11/03/21 Principal diagnosis: MRSA urinary tract infection Patient is a 81-year-old female presented to the hospital for weakness and frequent falls and this patient is to have a positive UA with area subsequently showing MRSA and the patient has: MRSA in her urine for the last 2 months, ultrasound was negative for hydronephrosis. On today's evaluation that is 11/03/2021, patient denies any fever or any chills, the patient is breathing comfortably on room air, the patient denies any chest pain shortness of breath or cough no further nausea or vomiting no abdominal pain no diarrhea Objective - Vital Signs Vital signs: Vital Signs Temp 97.6 F 11/03/21 08:00 Pulse 70 11/03/21 08:00 Resp 18 11/03/21 08:00 BP 136/65 11/03/21 08:00 Pulse Ox 95 11/03/21 08:00 Intake & Output 11/02/21 11/03/21 11/03/21 18:59 06:59 18:59 Intake Total 888 Balance 888 Intake: Oral 888 Other: Voiding Method Toilet Toilet Toilet # Voids 4 7 1 # Bowel Movements 1 - Exam GENERAL DESCRIPTION: An elderly female lying in bed in no distress RESPIRATORY SYSTEM: Unlabored breathing , decreased breath sounds at bases HEART: S1 S2 regular rate and rhythm , ABDOMEN: Soft , no tenderness EXTREMITIES: No edema feet - Labs CBC & Chem 7: 11/02/21 07:07 11/03/21 04:34 Labs: Microbiology - Last 24 Hours (Table) 11/01/21 03:23 Blood Culture - Preliminary Blood No Growth after 48 hours Assessment and Plan (1) UTI (urinary tract infection) Status: Acute Code(s): N39.0 - URINARY TRACT INFECTION, SITE NOT SPECIFIED SNOMED Code(s): 92130691 Plan: 1patient was in the hospital with weakness multiple falls which is likely multifactorial in this patient did have a positive UA concerning for possible symptomatic urinary tract infection with a urine finalized with MRSA likely the infected pathogen less likely colonization. 2 ultrasound has been negative for any structural mobility and repeat UA is negative 3patient seemed to have overall clinical improvement and with a repeat urine cultures and UA being negative, antibiotics can be safely discontinued on discharge Time with Patient: Less than 30
[2021-11-04] MEDS ORDERED: VANCOMYCIN TROUGH DUE 1 EACH MISC MISCELLANE ONE (08:00)
== END 2021-11-03 14:41 | DRG 871 ==
LOC: EC 13:41 → 4SSUR 15:49
PROVIDERS: ADMIT Internal Medicine; ATTEND Internal Medicine
DX: A41.02 Sepsis due to Methicillin resistant Staphylococcus aureus (principal); G93.41 Metabolic encephalopathy; N39.0 Urinary tract infection, site not specified; D50.9 Iron deficiency anemia, unspecified; F32.A Depression, unspecified; G31.89 Other specified degenerative diseases of nervous system; Z20.822 Contact with and (suspected) exposure to COVID-19; F41.9 Anxiety disorder, unspecified; N39.46 Mixed incontinence; R74.8 Abnormal levels of other serum enzymes; H26.9 Unspecified cataract; H53.2 Diplopia; I10 Essential (primary) hypertension; N28.1 Cyst of kidney, acquired; R29.6 Repeated falls; Z87.440 Personal history of urinary (tract) infections; Z87.891 Personal history of nicotine dependence; Z85.3 Personal history of malignant neoplasm of breast; Z90.710 Acquired absence of both cervix and uterus; Z90.49 Acquired absence of other specified parts of digestive tract; Z79.899 Other long term (current) drug therapy; Z86.14 Personal history of Methicillin resistant Staphylococcus aureus infection
CPT/HCPCS: 12002; 36415; 70450; 71046; 72125; 76705; 76770; 80053; 80202; 81001; 81003; 82550; 82565; 82607; 82747; 83540; 83550; 83605; 83735; 84100; 84145; 84439; 84443; 84481; 84484; 85025; 85610; 85730; 86140; 87040; 87077; 87086; 87186; 87635; 93005; 96365; 99284; 99285

== ENCOUNTER → 2021-11-28 | Outpatient (CLI) | payer MEDICARE, BC ==
[2021-11-28 14:56] LABS: Blood Urea Nitrogen 20 mg/dL (7-17)
[2021-11-28 14:57] LABS: African American GFR (CKD) >90 (>60 ml/min/1.73 sqM); Non-African American GFR(CKD) >90 (>60 ml/min/1.73 sqM)
--- NOTE | 2021-11-28 16:27 | CT ---
EXAMINATION TYPE: CT abdomen pelvis w con DATE OF EXAM: 11/28/2021 HISTORY: abd pain, h/o breast CA CT DLP: 491.4mGycm Automated Exposure Control for Dose Reduction was Utilized. CONTRAST: CT scan of the abdomen and pelvis is performed with IV Contrast, patient injected with 100 mL of Isov ue 300. COMPARISON: Prior CT abdomen and pelvis May 23, 2021 FINDINGS: LUNG BASES: No significant abnormality is appreciated. LIVER/GB: More prominent hepatomegaly with larger more confluent hepatic metastatic disease scattered throughout the liver on current study. Local mass effect is present. Cholecystectomy clips are redem onstrated. Focal irregular linear hypodense area left hepatic lobe near coronal image 18 could reflec t new biliary dilatation versus central necrosis. The latter is favored. No new extra hepatic biliary dilatation. Small amount of ascites along the right inferior aspect noted. PANCREAS: No significant abnormality is seen. SPLEEN: No significant abnormality is seen. ADRENALS: No significant abnormality is seen. KIDNEYS: Partially exophytic 2.8 cm thin-walled cyst in the lateral aspect lower pole right kidney co chicho image 58. Subcentimeter lesion posteriorly left kidney axial image 32 series 5 BOWEL: No significant abnormality is seen. UTERUS/ADNEXA: Uterus is surgically absent. Scattered small pelvic phleboliths. LYMPH NODES: No greater than 1cm abdominal or pelvic lymph nodes are appreciated. OSSEOUS STRUCTURES: No significant abnormality is seen. OTHER: No significant additional abnormality is seen. IMPRESSION: Increasing hepatomegaly and diffuse hepatic metastatic disease with local mass effect on right-sided abdominal structures.
== END | disposition home or self-care (01) ==
LOC: RADCTMAIN 14:04
PROVIDERS: ATTEND Internal Medicine Hematology & Oncology
DX: C78.7 Secondary malignant neoplasm of liver and intrahepatic bile duct (principal); Z85.3 Personal history of malignant neoplasm of breast
CPT/HCPCS: 82565; 84520; 74177; 36415; Q9967

== ENCOUNTER → 2021-12-04 | Outpatient (CLI) | payer MEDICARE, BC ==
--- NOTE | 2021-12-04 19:09 | MR ---
EXAMINATION TYPE: MR brain wo/w con DATE OF EXAM: 12/04/2021 COMPARISON: 09/30/2021 HISTORY: 81-year-old female G93.89, Brain mass, history of breast ca TECHNIQUE: Multiplanar, multisequence images of the brain and brainstem were acquired before and aft er administration of 6.5 mL IV Gadavist. Diffusion weighted imaging is performed. FINDINGS: No evidence for acute infarction, hemorrhage, mass, mass effect, midline shift, herniation, effacemen t of basal cisterns, or extra-axial fluid collection. There is mild to moderate generalized supratentorial volume loss. Mild ventricular prominence likely due to central cerebral atrophy, similar to the exam 2 months ago. T2/FLAIR weighted sequences show similar moderate scattered and patchy right white matter changes demetrio ecially in the periventricular and deep white matter regions of both cerebral hemispheres. A few foci are also present in the subcortical regions, unchanged from prior exam. Mild patchy changes in the b ilateral paramedian wayne, right greater than left also remains unchanged. Major intracranial flow voids appear largely intact. Midline structures demonstrate normal morphology. The craniocervical junction is normal. Post contrast images demonstrate no evidence of pathologic enhancement. Dural venous sinuses are pat ent. The visualized sinuses are clear and the globes are intact. IMPRESSION: Similar mild to moderate generalized atrophy and moderate burden of chronic small vessel ischemic dis ease. No enhancing lesions or acute intracranial abnormality seen. Stable exam from 2 months ago.
== END | disposition home or self-care (01) ==
LOC: RADMRIMAIN 10:35
PROVIDERS: ATTEND Internal Medicine
DX: I67.82 Cerebral ischemia (principal); G31.9 Degenerative disease of nervous system, unspecified; Z85.3 Personal history of malignant neoplasm of breast
CPT/HCPCS: 70553; A9585